=== PATIENT | male | born 1985 | race Caucasian/White ===

== ENCOUNTER → 2017-03-04 | Outpatient (CLI) | payer OTHER ==
--- NOTE | 2017-03-04 20:13 | CT ---
EXAMINATION TYPE: CT brain wo con DATE OF EXAM: 03/04/2017 COMPARISON: NONE HISTORY: DAVISON AND DIZZINESS. CT DLP: 992.9 mGycm. Automated Exposure Control for Dose Reduction was Utilized. TECHNIQUE: CT scan of the head is performed without contrast. FINDINGS: Ventricles have normal size. There is no mass effect nor midline shift. There is no sign of intracranial hemorrhage. The calvarium is intact. CONCLUSION: Negative CT scan of the brain.
== END | disposition home or self-care (01) ==
LOC: RADCTMAIN 19:45
PROVIDERS: ATTEND Internal Medicine
DX: R51 Headache (principal)
CPT/HCPCS: 70450

== ENCOUNTER → 2017-04-29 | Outpatient (CLI) | payer OTHER ==
--- NOTE | 2017-04-29 16:53 | MR ---
EXAMINATION TYPE: MR brain wo con DATE OF EXAM: 04/29/2017 COMPARISON: NONE HISTORY: Headaches CONTRAST: Performed utilizing 0 mL intravenous Gadavist gadolinium contrast. TECHNIQUE: Multiplanar, multiecho imaging on a 3.0 Leigha magnet is performed through the brain. Stud y is performed within 24 hours of arrival to the hospital. The craniovertebral junction is normal. The pituitary is normal. Diffusion-weighted imaging is performed. There is very subtle increased signal within the left front al lobe isointense with the gyri. An additional linear band within the left periventricular white mat ter also isointense with the lindsay matter. There are multiple scattered oval hyperintensities on T2 and inversion recovery weighted sequences. T hese appear oriented perpendicular to the lateral ventricles. Findings appear suggestive although not diagnostic for multiple sclerosis. There is a focal hyperintensity within the left frontal region me asuring 1.2 x 0.7 cm in size. This is just superior to the white matter hyperintensity identified on the diffusion-weighted imaging. Ventricles and sulci are appropriate for the patient age. IMPRESSIONS: 1. Multiple white matter changes oriented perpendicular to the lateral ventricles. Focal hyperintensi ty within the left frontal lobe with white matter changes in a larger patchy area slightly more infer ior. Findings can suggest, although not diagnostic for, multiple sclerosis. 2. Differential diagnosis could include other etiologies such as Lyme disease, microvascular ischemic change, vasculitis. 3. Acute plaque or underlying mass in the left frontal region may be present. Consider follow-up MRI brain with contrast for additional evaluation.
== END | disposition home or self-care (01) ==
LOC: RADMRIMAIN 14:50
PROVIDERS: ATTEND Psychiatry & Neurology Pain Medicine
DX: R90.82 White matter disease, unspecified (principal); R90.89 Other abnormal findings on diagnostic imaging of central nervous system; R51 Headache
CPT/HCPCS: 70551

== ENCOUNTER → 2017-06-24 | Outpatient (CLI) | payer OTHER ==
[2017-06-24 11:56] LABS: Basophils # (A) 0.1 k/uL (0-0.2); Basophils % (A) 1 %; Eosinophils # (A) 0.1 k/uL (0-0.7); Eosinophils % (A) 2 %; HCT 52.2 % (39.0-53.0); HGB 16.3 gm/dL (13.0-17.5); Lymphocytes # (A) 1.5 k/uL (1.0-4.8); Lymphocytes % (A) 30 %; MCH 30.9 pg (25.0-35.0); MCHC 31.3 g/dL (31.0-37.0); MCV 98.7 fL (80.0-100.0); Mean Platelet Volume 7.9; Monocytes # (A) 0.4 k/uL (0-1.0); Monocytes % (A) 7 %; Neutrophils # (A) 2.9 k/uL (1.3-7.7); Neutrophils % (A) 58 %; Platelet Count 240 k/uL (150-450); RBC 5.29 m/uL (4.30-5.90); RDW 14.5 % (11.5-15.5)
[2017-06-24 12:10] LABS: ALT 41 U/L (21-72); AST 20 U/L (17-59); Albumin 4.7 g/dL (3.5-5.0); Alkaline Phosphatase 67 U/L (38-126); Anion Gap 11 mmol/L; Blood Urea Nitrogen 12 mg/dL (9-20); C Reactive Protein <5.0 mg/L (<10.0); Carbon Dioxide 31 mmol/L (22-30); Chloride 102 mmol/L (98-107); Creatine Kinase 111 U/L (55-170); Glucose 99 mg/dL (74-99); Sodium 144 mmol/L (137-145); Total Bilirubin 1.6 mg/dL (0.2-1.3); Total Protein 7.9 g/dL (6.3-8.2)
[2017-06-24 14:26] LABS: Erythrocyte Sedimentation Rate 2 mm/hr (0-15)
[2017-06-24 17:08] LABS: Rheumatoid Factor <4 IU/mL (0-13); Vitamin D 25 Hydroxy 11.9 ng/mL (30.0-100.0)
[2017-06-24 18:03] LABS: Anti-DNA, DS unit <1.0 IU/mL; DNA Double-Stranded NEGATIVE (NEGATIVE)
== END | disposition home or self-care (01) ==
LOC: LABWHC1 11:16
PROVIDERS: ATTEND Psychiatry & Neurology Pain Medicine
DX: R51 Headache (principal); R90.82 White matter disease, unspecified
CPT/HCPCS: 36415; 80053; 82040; 82042; 82306; 82550; 82607; 82784; 83873; 83916; 84157; 84439; 84443; 84481; 85025; 85652; 86038; 86140; 86225; 86334; 86431; 86618; 86780; 87476; 88108; 89050

== ENCOUNTER → 2017-09-04 | Outpatient (CLI) | payer OTHER ==
--- NOTE | 2017-09-04 09:59 | MR ---
EXAMINATION TYPE: MR cervical spine wo/w con DATE OF EXAM: 09/04/2017 8:19 AM COMPARISON: NONE HISTORY: Neck Pain, MS CONTRAST: The patient was injected with 12.5 mL intravenous Gadavist gadolinium contrast. Multiplanar MultiSpin echo imaging of the cervical spine was performed. C2-C3: No evidence for degenerative disc disease. No disc bulge/herniation or protrusion. No Canal stenosis. Foramina are patent bilaterally. C3-C4: No evidence for degenerative disc disease. No disc bulge/herniation or protrusion. No Canal stenosis. Foramina are patent bilaterally. C4-C5: No evidence for degenerative disc disease. No disc bulge/herniation or protrusion. No Canal stenosis. Foramina are patent bilaterally. C5-C6: Mild disc desiccation noted. Left paracentral mild disc herniation is strategically situated a t the entrance of the left neural foramen. There is left foraminal encroachment. No evidence for cord contact or central stenosis. Right neural foramen is patent. C6-C7: Mild disc desiccation is noted. Mild posterocentral disc protrusion effaces the ventral thecal sac without cord contact. No evidence for central stenosis. Visualized neural foramina are patent. C7-T1: No evidence for degenerative disc disease. No disc bulge/herniation or protrusion. No Canal stenosis. Foramina are patent bilaterally. No cervical spine fracture. There is normal alignment. Cervical spinal cord is of normal signal. C raniovertebral junction relationships are within normal limits. No pathologic enhancement. IMPRESSION: 1. Disc desiccation with left paracentral disc herniation C5-6 and left foraminal encroachment. 2. Disc desiccation with mild posterocentral disc protrusion C6-7.
== END | disposition home or self-care (01) ==
LOC: RADMRIMAIN 07:36
PROVIDERS: ATTEND Psychiatry & Neurology Pain Medicine
DX: M50.222 Other cervical disc displacement at C5-C6 level (principal); G35 Multiple sclerosis
CPT/HCPCS: 72156; A9581

== ENCOUNTER → 2018-08-19 | Outpatient (CLI) | payer OTHER ==
[2018-08-19 11:56] LABS: Basophils % (A) 1 %; Eosinophils # (A) 0.2 k/uL (0-0.7); Eosinophils % (A) 4 %; HCT 49.3 % (39.0-53.0); HGB 15.6 gm/dL (13.0-17.5); Lymphocytes # (A) 1.3 k/uL (1.0-4.8); Lymphocytes % (A) 27 %; MCH 31.1 pg (25.0-35.0); MCHC 31.6 g/dL (31.0-37.0); MCV 98.3 fL (80.0-100.0); Mean Platelet Volume 6.8; Monocytes # (A) 0.4 k/uL (0-1.0); Monocytes % (A) 7 %; Neutrophils # (A) 2.9 k/uL (1.3-7.7); Neutrophils % (A) 59 %; Platelet Count 231 k/uL (150-450); RBC 5.02 m/uL (4.30-5.90)
[2018-08-19 16:56] LABS: Albumin 4.5 g/dL (3.80-4.90); Albumin/Globulin Ratio 1.96 (1.60-3.17); Anion Gap 5.9 mmol/L (4.00-12.00); Calcium 8.9 mg/dL (8.7-10.3); Carbon Dioxide 25.1 mmol/L (21.6-31.8); Globulin 2.3 g/dL (1.6-3.3); Potassium 4.4 mmol/L (3.5-5.5); Total Bilirubin 1.3 mg/dL (0.3-1.2); Total Protein 6.8 g/dL (6.2-8.2)
== END | disposition home or self-care (01) ==
LOC: LABWHC1 09:49
PROVIDERS: ATTEND Psychiatry & Neurology Pain Medicine
DX: G35 Multiple sclerosis (principal)
CPT/HCPCS: 36415; 80053; 82306; 83735; 85025

== ENCOUNTER → 2019-07-31 | Outpatient (CLI) | payer OTHER | END | disposition home or self-care (01) | LOC: LABWHC1 10:24 | PROVIDERS: ATTEND Psychiatry & Neurology Pain Medicine | DX: R07.89 Other chest pain (principal) | CPT/HCPCS: 36415; 93005 ==

== ENCOUNTER → 2019-08-06 | Outpatient (CLI) | payer OTHER ==
--- NOTE | 2019-08-06 13:04 | XR ---
EXAMINATION TYPE: XR foot limited bilateral DATE OF EXAM: 08/06/2019 COMPARISON: None HISTORY: Bilateral foot pain stepped on nail steals TECHNIQUE: 2 view bilateral feet FINDINGS: No radiopaque foreign bodies are evident. Bilateral calcaneal plantar heel spurs are presen t. Joint spaces are preserved. No acute osseous abnormality is radiographically apparent. There is so me varus deformity of the distal fourth and fifth phalanx bilateral feet. IMPRESSION: 1. No acute osseous abnormality. 2. No radiopaque foreign bodies.
== END | disposition home or self-care (01) ==
LOC: RADXRMAIN 12:42
PROVIDERS: ATTEND Internal Medicine
DX: M79.671 Pain in right foot (principal); M79.672 Pain in left foot

== ENCOUNTER → 2019-10-13 | Outpatient (CLI) | payer OTHER ==
[2019-10-13 13:22] LABS: Basophils # (A) 0.1 k/uL (0-0.2); Basophils % (A) 1 %; Eosinophils # (A) 0.2 k/uL (0-0.7); Eosinophils % (A) 3 %; HCT 50.1 % (39.0-53.0); HGB 16.4 gm/dL (13.0-17.5); Lymphocytes # (A) 1.6 k/uL (1.0-4.8); Lymphocytes % (A) 20 %; MCH 31.6 pg (25.0-35.0); MCHC 32.8 g/dL (31.0-37.0); MCV 96.4 fL (80.0-100.0); Mean Platelet Volume 7.7; Monocytes # (A) 0.6 k/uL (0-1.0); Monocytes % (A) 7 %; Neutrophils # (A) 5.1 k/uL (1.3-7.7); Neutrophils % (A) 66 %; Platelet Count 219 k/uL (150-450); RDW 13.9 % (11.5-15.5); WBC 7.7 k/uL (3.8-10.6)
[2019-10-13 18:59] LABS: T4, Free (Free Thyroxine) 1.5 ng/dL (0.80-1.80)
[2019-10-13 19:45] LABS: Hepatitis B Core IgM Non-Reactive (Non-Reactive); Hepatitis B Surface AB- Quant 223.6 mIU/mL; Hepatitis B Surface Antibody Reactive (Non-Reactive); Hepatitis B Surface Antigen Non-Reactive (Non-Reactive)
[2019-10-13 20:00] LABS: African American GFR (CKD) 129.6 (60.0-200.0); Albumin 4.6 g/dL (3.80-4.90); Albumin/Globulin Ratio 1.77 (1.60-3.17); Anion Gap 13.7 mmol/L (4.00-12.00); BUN/Creat Ratio 16.67 Ratio (12.00-20.00); Calcium 9.9 mg/dL (8.7-10.3); Carbon Dioxide 25.3 mmol/L (21.6-31.8); Folate, Serum 18.7 ng/mL; Globulin 2.6 g/dL (1.6-3.3); Magnesium 1.9 mg/dL (1.5-2.4); Non-African American GFR(CKD) 111.8 (60.0-200.0); Potassium 4.3 mmol/L (3.5-5.5); Total Bilirubin 1.6 mg/dL (0.3-1.2); Total Protein 7.2 g/dL (6.2-8.2)
[2019-10-13 20:01] LABS: HIV 2 AB Non-Reactive (Non-Reactive); HIV AB P24 Non-Reactive (Non-Reactive); HIV P24 AG Non-Reactive (Non-Reactive)
[2019-10-13 22:30] LABS: Hemoglobin A1C 5.6 % (4.0-6.0)
[2019-10-15 05:28] LABS: Varicella IgM Antibody 0.26 INDEX (<=0.90)
== END | disposition home or self-care (01) ==
LOC: LABWHC1 11:34
PROVIDERS: ATTEND Psychiatry & Neurology Pain Medicine
DX: G35 Multiple sclerosis (principal); R51 Headache
CPT/HCPCS: 36415; 80053; 82306; 82607; 82746; 83036; 83735; 84207; 84425; 84439; 84443; 84481; 84591; 85025; 86704; 86705; 86706; 86787; 87340; 87390

== ENCOUNTER → 2019-12-23 | Outpatient (CLI) | payer OTHER ==
--- NOTE | 2019-12-23 14:47 | US ---
EXAMINATION TYPE: US liver DATE OF EXAM: 12/23/2019 COMPARISON: NONE CLINICAL HISTORY: Elevated liver enzymes R94.5. elevated liver enzymes exam limited due to body hbitu s. EXAM MEASUREMENTS: Liver Length: 23 cm Gallbladder Wall: .3 cm CBD: .5 cm Right Kidney: 12.0 x 5.4 x 5.2 cm Pancreas: Obscured by bowel gas Liver: Increased attenuation hepatomegaly. Gallbladder: Limited not well visualized due body habitus Evidence for sonographic Orourke's sign: No CBD: wnl Right Kidney: wnl IMPRESSION: 1. Fatty liver with underlying hepatomegaly.
== END | disposition home or self-care (01) ==
LOC: RADUSWWP 13:23
PROVIDERS: ATTEND Psychiatry & Neurology Pain Medicine
DX: K76.0 Fatty (change of) liver, not elsewhere classified (principal); R16.0 Hepatomegaly, not elsewhere classified
CPT/HCPCS: 76705

== ENCOUNTER → 2020-04-19 | Outpatient (CLI) | payer OTHER ==
[2020-04-19 11:49] VITALS: BP 137/73; PULSE 64; TEMP 98; BMI 43.4
--- NOTE | 2020-04-19 12:11 | P.HPBAR ---
Bariatric H&P - History & Physicial H&P Date: 04/19/20 History & Physicial: Visit/CC: initial visit Patient initial contact: Initial weight: Initial weight in pounds: Height: 6 ft 1 in Initial BMI: Last weight: Current weight: 149.232 kg Current weight in pounds: 329.00 Current BMI: 43.4 [place] body weight (based on NIH guidelines): 83.461 kg Excess body weight loss: The patient is a 35 year-old M who presents for Bariatric Assessment. He comes in looking the sleeve gastrectomy. He is 4 months of medical supervised weight loss. Has 1 in lifetime. He needs slow and steady weight loss. Food and exercise journal. Needs to get food and exercise journal. Download my fitness p al. He is 6'1. No stomach cancer. No esophageal cancer. No easy bruising or bleeding. No blood clots. Highest weight is at present 329 pounds. Has arthritis. He reports headaches daily. [facility] calculator. All questions addressed. Mom is at bedside. Past Medical History Past Medical History: No Reported History History of Any Multi-Drug Resistant Organisms: None Reported Past Surgical History: No Surgical Hx Reported Past Anesthesia/Blood Transfusion Reactions: No Reported Reaction Past Psychological History: No Psychological Hx Reported Smoking Status: Never smoker Past Alcohol Use History: Occasional Past Drug Use History: None Reported Surgical - Exam Vital Signs Temp Pulse BP 98 F 64 137/73 04/19/20 11:37 04/19/20 11:37 04/19/20 11:37 Bariatric Checklist Checklist: Plan: Checklist: EGD: 1. Hiatal hernia: 2. H. Pylori: HgbA1c: Vitamin D: Smoking: Never smoker Primary care physician referral: Dr. Cano Psychiatry clearance: Cardiology clearance: Sleep study: Diet journal: VTE risk score: VTE risk level: Rehab needs at discharge:
[2020-04-19 13:12] LABS: HGB 16.5 gm/dL (13.0-17.5); MCH 32.4 pg (25.0-35.0); MCHC 32.3 g/dL (31.0-37.0); MCV 100.1 fL (80.0-100.0); Mean Platelet Volume 7.8; Platelet Count 244 k/uL (150-450); RBC 5.09 m/uL (4.30-5.90); RDW 13.7 % (11.5-15.5); WBC 5.8 k/uL (3.8-10.6)
[2020-04-19 13:23] LABS: Partial Thromboplastin Time 25.2 sec (22.0-30.0); Prothrombin Time 10.6 sec (9.0-12.0)
[2020-04-19 20:14] LABS: % Iron Saturation 29.64 (15.00-50.00); African American GFR (CKD) 128.7 (60.0-200.0); Albumin 4.5 g/dL (3.80-4.90); Albumin/Globulin Ratio 1.88 (1.60-3.17); Anion Gap 6.4 mmol/L (4.00-12.00); BUN/Creat Ratio 17.78 Ratio (12.00-20.00); Calcium 9.2 mg/dL (8.7-10.3); Carbon Dioxide 25.6 mmol/L (21.6-31.8); Chol/HDL Ratio 3.96; Globulin 2.4 g/dL (1.6-3.3); LDL Cholesterol,Calculated 113.6 mg/dL (0.0-131.0); Magnesium 1.9 mg/dL (1.5-2.4); Phosphorus 3.6 mg/dL (2.4-5.1); Potassium 4.6 mmol/L (3.5-5.5); Total Bilirubin 1.1 mg/dL (0.3-1.2); Total Protein 6.9 g/dL (6.2-8.2); VLDL Calculation 19.4 mg/dL (5.00-40.00)
[2020-04-19 20:34] LABS: Ferritin 777.2 ng/mL (22.0-322.0); Folate, Serum 13.8 ng/mL
[2020-04-19 21:05] LABS: Hemoglobin A1C 5.6 % (4.0-6.0)
[2020-04-20 11:30] LABS: Zinc, Serum 81 ug/dL (60-130)
[2020-04-21 07:27] LABS: Vit B1(Thiamine) 83 ug/L (38-122)
[2020-04-21 07:34] LABS: Vitamin A 45 ug/dL (38-106)
[2020-04-26 19:17] LABS: Selenium 124 mcg/L (63-160)
== END | disposition home or self-care (01) ==
LOC: BARWHC3 10:57
PROVIDERS: ATTEND Surgery Plastic and Reconstructive Surgery
DX: E66.01 Morbid (severe) obesity due to excess calories (principal); D50.8 Other iron deficiency anemias; E44.0 Moderate protein-calorie malnutrition; K74.1 Hepatic sclerosis; N19 Unspecified kidney failure; K50.90 Crohn's disease, unspecified, without complications; Z68.41 Body mass index [BMI] 40.0-44.9, adult
CPT/HCPCS: 84255; 84134; 84425; 80061; 80053; 82607; 82728; 82525; 82746; 83540; 83550; 83735; 84100; 84443; 84590; 84630; 85027; 85610; 85730; 82306; 83970; 83036; 93005; G0463; 99211

== ENCOUNTER → 2020-05-10 | Day surgery (SDC) | payer OTHER ==
[2020-05-09 08:29] VITALS: BMI 43.5
[~2020-05-10] MED LIST: LACTATED RINGERS 1,000 ML IV SCH; LIDOCAINE 1% (10MG/ML) FOR IV START INTRADERMA ONE; PROPOFOL 10 MG/ML 20 ML VIAL IV ONE
--- NOTE | 2020-05-10 08:40 | P.GSHP ---
History of Present Illness H&P Date: 05/10/20 CHIEF COMPLAINT: GERD HISTORY OF PRESENT ILLNESS: The patient is a 35-year-old male who presents reports gastroesophageal reflux disease. Upper endoscopy was offered for further evaluation and management. PAST MEDICAL HISTORY: Please see list. PAST SURGICAL HISTORY: Please see list. MEDICATIONS: Please see list. ALLERGIES: Please see list. SOCIAL HISTORY: No illicit drug use FAMILY HISTORY: No reports of Crohn disease or ulcerative colitis. REVIEW OF ORGAN SYSTEMS: CONSTITUTIONAL: No reports of fevers or chills. GI: Denies any blood in stools or constipation. PHYSICAL EXAM: VITAL SIGNS: Stable GENERAL: Well-developed and pleasant in no acute distress. HEENT: No scleral icterus. Extraocular movements grossly intact. Moist buccal mucosa. NECK: Supple without lymphadenopathy. CHEST: Unlabored respirations. Equal bilateral excursions. CARDIOVASCULAR: Regular rate and rhythm. Distal 2+ pulses. ABDOMEN: Soft, nondistended. MUSCULOSKELETAL: No clubbing, cyanosis, or edema. ASSESSMENT: 1. Gastroesophageal reflux disease PLAN: 1. Recommend proceeding with an upper endoscopy Past Medical History Past Medical History: No Reported History Additional Past Medical History / Comment(s): migraines, Mult sclerosis, History of Any Multi-Drug Resistant Organisms: None Reported Past Surgical History: No Surgical Hx Reported Past Anesthesia/Blood Transfusion Reactions: No Reported Reaction Additional Past Anesthesia/Blood Transfusion Reaction / Comment(s): never had anesthesia Smoking Status: Never smoker - Past Family History Mother Family Medical History: Cancer Additional Family Medical History / Comment(s): thyroid cancer Medications and Allergies Home Medications Medication Instructions Recorded Confirmed Type Escitalopram Oxalate [Lexapro] 10 mg PO HS 03/04/17 04/19/20 History Phentermine HCl [Adipex-P] 37.5 mg PO QAM 03/04/17 04/19/20 History Naproxen 250 mg PO DIRECTED 04/19/20 04/19/20 History Allergies Allergy/AdvReac Type Severity Reaction Status Date / Time No Known Allergies Allergy Verified 05/10/20 08:35
[2020-05-10 08:45] VITALS: TEMP 98.2
--- NOTE | 2020-05-10 09:26 | P.PCN ---
Date of Procedure: 05/10/20 Description of Procedure: PREOPERATIVE DIAGNOSIS: Gastroesophageal reflux disease. Morbid obesity. POSTOPERATIVE DIAGNOSIS: Morbid obesity. Gastritis. Duodenitis OPERATION: Esophagogastroduodenoscopy with biopsies along antrum and duodenum SURGEON: Rochelle Hernandez MD ANESTHESIA: MAC. INDICATIONS: The patient is a 35-year-old male who presents with a history of reflux disease. Benefits and risks of the procedure were described. Informed consent was obtained. DESCRIPTION: The patient was brought into the endoscopy suite and laid in the left lateral decubitus position. An Olympus gastroscope was passed along the posterior oropharynx down to the distal esophagus where the squamocolumnar junction was encountered at 44 cm from the incisors. The stomach was entered and no bile reflux was found. Additional findings are listed below. Biopsies with cold forceps were obtained of the antrum. The first through third portion of the duodenum was examined. Retroflexion of the scope confirmed Hill grade 3 lower esophageal valve. The squamocolumnar junction demonstrated LA grade A erosive esophagitis. The stomach was desufflated. The patient tolerated the procedure well. FINDINGS: Squamocolumnar junction 44 cm from the incisors. Diaphragmatic hiatus at 44 cm. Hill grade 1 lower esophageal valve. LA grade A erosive esophagitis. Mild duodenitis. Chronic gastritis RECOMMENDATIONS: Upper endoscopy as needed. Plan - Discharge Summary New Discharge Prescriptions: Continue RX: Escitalopram Oxalate [Lexapro] 10 mg PO HS RX: Phentermine HCl [Adipex-P] 37.5 mg PO QAM RX: Naproxen 500 mg PO DIRECTED Discharge Medication List RX: Escitalopram Oxalate [Lexapro] 10 mg PO HS 03/04/17 [History] RX: Phentermine HCl [Adipex-P] 37.5 mg PO QAM 03/04/17 [History] RX: Naproxen 500 mg PO DIRECTED 04/19/20 [History] [facility] up [facility]ment(s[facility] [place] [place] [facility] Week Patient Instructions/Handouts: Duodenitis (DC) Discharge Disposition: HOME SELF-CARE
[2020-05-10 09:34] VITALS: RESP 16
[2020-05-10 09:49] VITALS: BP 123/74; PULSE 52
== END | disposition home or self-care (01) ==
LOC: ORWHC2ENDO 07:58
PROVIDERS: ATTEND Surgery Plastic and Reconstructive Surgery
DX: K29.50 Unspecified chronic gastritis without bleeding (principal); K22.10 Ulcer of esophagus without bleeding; K21.9 Gastro-esophageal reflux disease without esophagitis; K29.80 Duodenitis without bleeding; K29.70 Gastritis, unspecified, without bleeding; E66.01 Morbid (severe) obesity due to excess calories; Z68.41 Body mass index [BMI] 40.0-44.9, adult; G35 Multiple sclerosis; G43.909 Migraine, unspecified, not intractable, without status migrainosus; Z80.8 Family history of malignant neoplasm of other organs or systems; Z79.1 Long term (current) use of non-steroidal anti-inflammatories (NSAID); Z79.899 Other long term (current) drug therapy
CPT/HCPCS: 88305; 88342; 43239; J2704

== ENCOUNTER → 2020-05-17 | Outpatient (CLI) | payer OTHER ==
[2020-05-17 15:06] VITALS: BP 104/54; PULSE 59; RESP 18; TEMP 98.4
--- NOTE | 2020-05-17 15:46 | P.PN ---
Subjective Progress Note Date: 05/17/20 DATE OF SERVICE: 05/17/2020 CHIEF COMPLAINT: Morbid obesity HISTORY OF PRESENT ILLNESS: Jude Batres is a 35-year-old male who comes with morbid obesity. He completed an upper endoscopy. He takes multiple medications for multiple sclerosis and is on treatment that caused hepatitis. He sees Dr. Fine. He had abdominal pain. At height of 6 feet 1 inches, ideal body weight is 188 pounds. His highest weight is 329 pounds, BMI 43.5. He comes in 325 pounds from 328 pounds, 1 month ago. He has lost 3 pounds in 1 month. His body mass index is 43.0. He is 137 pounds overweight. PAST MEDICAL HISTORY: 1. Morbid obesity due to excess calories 2. Body mass index of 43.4, initial 3. Depressive disorder 4. Osteoarthritis of the lower back PAST SURGICAL HISTORY: 1. No previous abdominal surgeries HOME MEDICATIONS: Home Medications Medication Instructions Recorded Confirmed Escitalopram Oxalate [Lexapro] 10 mg PO HS 03/04/17 05/29/20 Phentermine HCl [Adipex-P] 37.5 mg PO QAM 03/04/17 05/29/20 Naproxen 500 mg PO DIRECTED 04/19/20 05/29/20 ALLERGIES: Allergies Allergy/AdvReac Type Severity Reaction Status Date / Time No Known Allergies Allergy Verified 05/29/20 09:45 SOCIAL HISTORY: No past tobacco use. FAMILY HISTORY: No family history of ulcerative colitis disease or Crohn's disease. Family history of morbid obesity. No lupus in the family. No reports of stomach or esophageal cancer. REVIEW OF ORGAN SYSTEMS: CONSTITUTIONAL: HEENT: Denies any active troubles with vision or hearing. ENDOCRINE: Denies diabetes. No hypothyroidism. CARDIOVASCULAR: No past reports of palpitations or heart attacks or chest pain. RESPIRATORY: Has daytime somnolence. No recent pneumonia. GASTROINTESTINAL: Denies any bright red blood per rectum. No diarrhea. No constipation. MUSCULOSKELETAL: Has lower back pain and joint pain. Has osteoarthritis of the knees. NEURO: Has headaches. No seizure disorders. PSYCH: Has depression. No suicidal ideation. RHEUMATOLOGIC: No lupus. No rheumatoid arthritis. HEMATOLOGIC: Denies any abnormal bleeding or bruising. No personal history of DVTs. SKIN: No rash. No skin cancer. PHYSICAL EXAM: VITAL SIGNS: Height 6 foot 1 inches, weight 325 pounds. BMI 43.0 Vital Signs Temp 98.4 F 05/17/20 15:03 Pulse 59 L 05/17/20 15:03 Resp 18 05/17/20 15:03 BP 104/54 05/17/20 15:03 Pulse Ox GENERAL: Well-developed in no acute distress. HEENT: No scleral icterus. Extraocular movements grossly intact. Hears conversational speech. No nasal drainage. NECK: Supple without lymphadenopathy. CHEST: Nonlabored respirations with equal bilateral excursions. CARDIOVASCULAR: Regular rate and regular rhythm. Distal 2+ pulses. ABDOMEN: Obese, soft, nontender, nondistended. MUSCULOSKELETAL: No clubbing, cyanosis. NEURO: No focal or lateralizing signs. Cranial nerves 2 through 12 grossly within normal limits. PSYCH: Appropriate affect. Alert and oriented to person, place and time. SKIN: Good skin turgor. Well perfused. EGD FINDINGS: Squamocolumnar junction 44 cm from the incisors. Diaphragmatic hiatus at 44 cm. Hill grade 1 lower esophageal valve. LA grade A erosive esophagitis. Mild duodenitis. Chronic gastritis LABS: AST and ALT is elevated EKG: Normal sinus rhythm Final Pathologic Diagnosis A. GASTRIC ANTRUM, BIOPSY: Moderate chronic gastritis with minimal activity. Helicobacter pylori immunoperoxidase stain is negative for H. pylori organisms ( controls appropriate). B. DUODENUM, BIOPSY: Acute duodenitis with foveolar metaplasia and submucosal Ace gland hyperplasia consistent with peptic duodenitis. ASSESSMENT: 1. Morbid obesity due to excess calories 2. Body mass index of 43.4, initial 3. Depressive disorder 4. Osteoarthritis of the lower back 5. Gastritis 6. Duodenitis PLAN: 1. Omeprazole 40 mg daily for gastritis and duodenitis. Objective - Vital Signs Vital signs: Vital Signs Temp 98.4 F 05/17/20 15:03 Pulse 59 L 05/17/20 15:03 Resp 18 05/17/20 15:03 BP 104/54 05/17/20 15:03 Pulse Ox Intake & Output 05/16/20 05/17/20 05/17/20 18:59 06:59 18:59 Weight 147.871 kg
== END | disposition home or self-care (01) ==
LOC: BARWHC3 14:17
PROVIDERS: ATTEND Surgery Plastic and Reconstructive Surgery
DX: E66.01 Morbid (severe) obesity due to excess calories (principal); F32.9 Major depressive disorder, single episode, unspecified; M47.9 Spondylosis, unspecified; K29.70 Gastritis, unspecified, without bleeding; K29.80 Duodenitis without bleeding; Z68.41 Body mass index [BMI] 40.0-44.9, adult; Z79.899 Other long term (current) drug therapy; Z79.1 Long term (current) use of non-steroidal anti-inflammatories (NSAID)
CPT/HCPCS: 99211

== ENCOUNTER → 2020-05-29 | Outpatient (CLI) | payer OTHER ==
[2020-05-29 09:32] VITALS: BMI 43.1
== END | disposition home or self-care (01) ==
LOC: BARWHC3 08:49
PROVIDERS: ATTEND Surgery Plastic and Reconstructive Surgery
DX: E66.01 Morbid (severe) obesity due to excess calories (principal); Z71.3 Dietary counseling and surveillance; Z68.41 Body mass index [BMI] 40.0-44.9, adult
CPT/HCPCS: 97804

== ENCOUNTER → 2020-09-27 | Outpatient (CLI) | payer OTHER ==
--- NOTE | 2020-09-27 15:41 | P.PN ---
Subjective Progress Note Date: 09/27/20 DATE OF SERVICE: 09/27/2020 CHIEF COMPLAINT: Morbid obesity HISTORY OF PRESENT ILLNESS: Jude Batres is a 35-year-old male who comes with morbid obesity. As a result of his morbid obesity, he has developed osteoarthritis of the lower back, multiple sclerosis, depressive disorder. He comes in looking for a sleeve gastrectomy. He's completed dietary surveillance and counseling, medical risk assessment as well. At height of 6 feet 1 inches, ideal body weight is 188 pounds. His highest weight is 329 pounds, BMI 43.5. He comes in 313 pounds from 325 pounds, 6 month ago. He has lost 12 pounds in 6 months. His body mass index is 41.4. He is 125 pounds overweight. PAST MEDICAL HISTORY: 1. Morbid obesity due to excess calories 2. Body mass index of 43.4, initial 3. Depressive disorder 4. Osteoarthritis of the lower back 5. Multiple sclerosis PAST SURGICAL HISTORY: 1. No previous abdominal surgeries HOME MEDICATIONS: Home Medications Medication Instructions Recorded Confirmed Escitalopram Oxalate [Lexapro] 10 mg PO HS 03/04/17 05/29/20 Phentermine HCl [Adipex-P] 37.5 mg PO QAM 03/04/17 05/29/20 Naproxen 500 mg PO DIRECTED 04/19/20 05/29/20 ALLERGIES: Allergies Allergy/AdvReac Type Severity Reaction Status Date / Time No Known Allergies Allergy Verified 05/29/20 09:45 SOCIAL HISTORY: No past tobacco use. FAMILY HISTORY: No family history of ulcerative colitis disease or Crohn's disease. Family history of morbid obesity. No lupus in the family. No reports of stomach or esophageal cancer. REVIEW OF ORGAN SYSTEMS: CONSTITUTIONAL: At height of 6 feet 1 inches, ideal body weight is 188 pounds. His highest weight is 329 pounds, BMI 43.5. He is 137 pounds overweight. HEENT: Denies any active troubles with vision or hearing. ENDOCRINE: Denies diabetes. No hypothyroidism. CARDIOVASCULAR: No past reports of palpitations or heart attacks or chest pain. RESPIRATORY: Has daytime somnolence. No recent pneumonia. GASTROINTESTINAL: Denies any bright red blood per rectum. No diarrhea. No constipation. MUSCULOSKELETAL: Has lower back pain and joint pain. Has osteoarthritis of the knees. Reports multiple sclerosis. NEURO: Has headaches. No seizure disorders. PSYCH: Has depression. No suicidal ideation. RHEUMATOLOGIC: No lupus. No rheumatoid arthritis. HEMATOLOGIC: Denies any abnormal bleeding or bruising. No personal history of DVTs. SKIN: No rash. No skin cancer. PHYSICAL EXAM: VITAL SIGNS: Height 6 foot 1 inches, weight 313 pounds. BMI 41.4 Vital Signs Temp 98.1 F 09/27/20 14:47 Pulse 64 09/27/20 14:47 Resp 16 09/27/20 14:47 BP 116/75 09/27/20 14:47 Pulse Ox GENERAL: Well-developed in no acute distress. HEENT: No scleral icterus. Extraocular movements grossly intact. Hears conversational speech. No nasal drainage. NECK: Supple without lymphadenopathy. CHEST: Nonlabored respirations with equal bilateral excursions. CARDIOVASCULAR: Regular rate and regular rhythm. Distal 2+ pulses. ABDOMEN: Obese, soft, nontender, nondistended. MUSCULOSKELETAL: No clubbing, cyanosis. NEURO: No focal or lateralizing signs. Cranial nerves 2 through 12 grossly within normal limits. PSYCH: Appropriate affect. Alert and oriented to person, place and time. SKIN: Good skin turgor. Well perfused. ASSESSMENT: 1. Morbid obesity due to excess calories 2. Body mass index of 43.4, initial to 41.4 3. Depressive disorder 4. Osteoarthritis of the lower back 5. Gastritis 6. Duodenitis 7. Multiple sclerosis PLAN: 1. Bariatric options between a sleeve, band and a Collette-en-Y gastric bypass were reviewed in detail. The patient elected for a sleeve gastrectomy. Robotic assisted approach described. 2. The [place] [facility] Data was also reviewed with benefits and risks as described. 3. An 8 page second-generation bariatric consent form was reviewed in detail including potential of bleeding, infection, leaks, adequate weight loss, nutritional deficiencies which the patient demonstrated understanding of the risks. 4. A 2 week high-protein low caloric 800 kcal diet described to address hepatomegaly. 5. Preoperative labs including complete metabolic panel and CBC with type and screen recommended. 6. DVT prophylaxis per [place] [facility]. 7. Antibiotic prophylaxis. 8. Inpatient hospitalization anticipated for more than 2 nights. 9. All questions and concerns were addressed with the patient. 10. Overall, patient has expressed understanding of bariatric care including postoperative diet and commitment of lifestyle. Patient should benefit from surgical intervention for correction of her morbid obesity. 11. NSQIP risk and benefits reviewed. 12. Anticipated discharge 1.5 days. 13. He is awaiting COVID vaccination with anticipated surgery delayed for November 23 activity. 14. Surgery immediately during vaccination puts him at increased risk for complications. Objective - Vital Signs Vital signs: Vital Signs Temp 98.1 F 09/27/20 14:47 Pulse 64 09/27/20 14:47 Resp 16 09/27/20 14:47 BP 116/75 09/27/20 14:47 Pulse Ox Intake & Output 09/26/20 09/27/20 09/27/20 18:59 06:59 18:59 Weight 142.428 kg
== END ==
CPT/HCPCS: 99211

== ENCOUNTER → 2020-10-24 | Outpatient (CLI) | payer OTHER ==
[2020-10-24 13:47] LABS: Basophils # (A) 0.1 k/uL (0-0.2); Basophils % (A) 1 %; Eosinophils # (A) 0.2 k/uL (0-0.7); Eosinophils % (A) 3 %; HCT 48.8 % (39.0-53.0); HGB 16.5 gm/dL (13.0-17.5); Lymphocytes # (A) 1.5 k/uL (1.0-4.8); Lymphocytes % (A) 19 %; MCH 32.3 pg (25.0-35.0); MCHC 33.7 g/dL (31.0-37.0); MCV 95.8 fL (80.0-100.0); Mean Platelet Volume 7.5; Monocytes # (A) 0.5 k/uL (0-1.0); Monocytes % (A) 7 %; Neutrophils # (A) 5.3 k/uL (1.3-7.7); Neutrophils % (A) 68 %; Platelet Count 234 k/uL (150-450); RDW 13.6 % (11.5-15.5); WBC 7.7 k/uL (3.8-10.6)
[2020-10-24 13:59] LABS: ALT 37 U/L (4-49); AST 33 U/L (17-59); African American GFR (CKD) >90 (>60 ml/min/1.73 sqM); Albumin 4.3 g/dL (3.5-5.0); Alkaline Phosphatase 75 U/L (38-126); Anion Gap 7 mmol/L; Blood Urea Nitrogen 11 mg/dL (9-20); Carbon Dioxide 26 mmol/L (22-30); Chloride 106 mmol/L (98-107); Glucose 101 mg/dL (74-99); Non-African American GFR(CKD) >90 (>60 ml/min/1.73 sqM); Potassium 4.3 mmol/L (3.5-5.1); Sodium 139 mmol/L (137-145); Total Bilirubin 0.9 mg/dL (0.2-1.3); Total Protein 7.4 g/dL (6.3-8.2)
== END | disposition home or self-care (01) ==
LOC: LABPAT 13:04
PROVIDERS: ATTEND Surgery Plastic and Reconstructive Surgery
DX: Z01.812 Encounter for preprocedural laboratory examination (principal)
CPT/HCPCS: 36415; 80053; 85025; 86850; 86900; 86901

== ENCOUNTER 2020-10-30 08:50 | Inpatient (IN) | payer OTHER ==
--- NOTE | 2020-10-30 07:51 | P.GSHP ---
History of Present Illness H&P Date: 10/30/20 CHIEF COMPLAINT: Morbid obesity HISTORY OF PRESENT ILLNESS: Jude Batres is a 35-year-old male who comes with morbid obesity. He has completed bariatric risk assessment including dietary surveillance and counseling, medical risk assessment and psychological assessment. As results of his morbid obesity, history of osteoarthritis of the lower extremities including sleep apnea. He presents today for sleeve gastrectomy. At height of 6 feet 1 inches, ideal body weight is 188 pounds. His highest weight is 329 pounds, BMI 43.5. He is 137 pounds overweight. PAST MEDICAL HISTORY: 1. Morbid obesity due to excess calories 2. Body mass index of 43.4, initial 3. Depressive disorder 4. Osteoarthritis of the lower back PAST SURGICAL HISTORY: 1. No previous abdominal surgeries HOME MEDICATIONS: Home Medications Medication Instructions Recorded Confirmed Escitalopram Oxalate [Lexapro] 10 mg PO HS 03/04/17 05/29/20 Phentermine HCl [Adipex-P] 37.5 mg PO QAM 03/04/17 05/29/20 Naproxen 500 mg PO DIRECTED 04/19/20 05/29/20 ALLERGIES: Allergies Allergy/AdvReac Type Severity Reaction Status Date / Time No Known Allergies Allergy Verified 05/29/20 09:45 SOCIAL HISTORY: No past tobacco use. FAMILY HISTORY: No family history of ulcerative colitis disease or Crohn's disease. Family history of morbid obesity. No lupus in the family. No reports of stomach or esophageal cancer. REVIEW OF ORGAN SYSTEMS: CONSTITUTIONAL: HEENT: Denies any active troubles with vision or hearing. ENDOCRINE: Denies diabetes. No hypothyroidism. CARDIOVASCULAR: No past reports of palpitations or heart attacks or chest pain. RESPIRATORY: Has daytime somnolence. No recent pneumonia. GASTROINTESTINAL: Denies any bright red blood per rectum. No diarrhea. No constipation. MUSCULOSKELETAL: Has lower back pain and joint pain. Has osteoarthritis of the knees. NEURO: Has headaches. No seizure disorders. PSYCH: Has depression. No suicidal ideation. RHEUMATOLOGIC: No lupus. No rheumatoid arthritis. HEMATOLOGIC: Denies any abnormal bleeding or bruising. No personal history of DVTs. SKIN: No rash. No skin cancer. PHYSICAL EXAM: VITAL SIGNS: Height 6 foot 1 inches, weight 325 pounds. BMI 43.0 GENERAL: Well-developed in no acute distress. HEENT: No scleral icterus. Extraocular movements grossly intact. Hears conversational speech. No nasal drainage. NECK: Supple without lymphadenopathy. CHEST: Nonlabored respirations with equal bilateral excursions. CARDIOVASCULAR: Regular rate and regular rhythm. Distal 2+ pulses. ABDOMEN: Obese, soft, nontender, nondistended. MUSCULOSKELETAL: No clubbing, cyanosis. NEURO: No focal or lateralizing signs. Cranial nerves 2 through 12 grossly within normal limits. PSYCH: Appropriate affect. Alert and oriented to person, place and time. SKIN: Good skin turgor. Well perfused. ASSESSMENT: 1. Morbid obesity due to excess calories 2. Body mass index of 43.4, initial 3. Depressive disorder 4. Osteoarthritis of the lower back 5. Gastritis 6. Duodenitis PLAN: 1. Bariatric options between a sleeve, band and a Collette-en-Y gastric bypass were reviewed in detail. The patient elected for a sleeve gastrectomy. Robotic assisted approach described. 2. The [place] [facility] Data was also reviewed with benefits and risks as described. 3. An 8 page second-generation bariatric consent form was reviewed in detail including potential of bleeding, infection, leaks, adequate weight loss, nutritional deficiencies which the patient demonstrated understanding of the risks. 4. A 2 week high-protein low caloric 800 kcal diet described to address hepatomegaly. 5. Preoperative labs including complete metabolic panel and CBC with type and screen recommended. 6. DVT prophylaxis per [place] [facility]ariat[facility] collaborative. 7. Antibiotic prophylaxis. 8. Inpatient hospitalization anticipated for more than 2 nights. 9. All questions and concerns were addressed with the patient. Past Medical History Past Medical History: No Reported History Additional Past Medical History / Comment(s): migraines, Multiple sclerosis, History of Any Multi-Drug Resistant Organisms: None Reported Past Surgical History: No Surgical Hx Reported Additional Past Surgical History / Comment(s): egd Past Anesthesia/Blood Transfusion Reactions: No Reported Reaction Additional Past Anesthesia/Blood Transfusion Reaction / Comment(s): never had anesthesia Smoking Status: Never smoker - Past Family History Mother Family Medical History: Cancer Additional Family Medical History / Comment(s): thyroid cancer Medications and Allergies Home Medications Medication Instructions Recorded Confirmed Type Escitalopram Oxalate [Lexapro] 5 mg PO DAILY PRN 03/04/17 10/25/20 History Naproxen 500 mg PO BID PRN 04/19/20 10/25/20 History Topiramate [Topamax] 25 mg PO BID 10/27/20 10/27/20 History Allergies Allergy/AdvReac Type Severity Reaction Status Date / Time No Known Allergies Allergy Verified 10/27/20 11:33
[~2020-10-30 08:50] MED LIST changes: +ACETAMINOPHEN TAB 500 MG TAB PO PRN; +CHLORHEXIDINE GLUCONATE 15 ML CUP MUCOUS MEM PRN; +DEXAMETHASONE SOD PHOSPHATE 4 MG/ML 1 ML VIAL IV ONE; +ENOXAPARIN 40 MG/0.4 ML SYRINGE SQ PRN; +GABAPENTIN 300 MG CAP PO PRN; +HYDROmorphone 0.5 MG/0.5 ML SYRINGE IVP PRN; -LACTATED RINGERS 1,000 ML IV SCH; -LIDOCAINE 1% (10MG/ML) FOR IV START INTRADERMA ONE; +MIDAZOLAM 2 MG/2 ML VIAL IV PRN; +ONDANSETRON 4 MG/2 ML VIAL IVP ONE; +PANTOPRAZOLE 40 MG/10 ML VIAL IVP PRN; -PROPOFOL 10 MG/ML 20 ML VIAL IV ONE; +SCOPOLAMINE 1.5MG/72HR PATCH TRANSDERM PRN; +TAMSULOSIN 0.4 MG CAP.ER.24H PO PRN; +ceFAZolin 3 GM in SODIUM CHLORIDE 0.9% 100 ML IVPB PRN
[2020-10-30] MEDS: LACTATED RINGERS 1,000 ML IV SCH ×3 (09:07→11:00)
[2020-10-30] MEDS ORDERED: LIDOCAINE 1% (10MG/ML) FOR IV START INTRADERMA ONE (09:46)
[2020-10-30] MEDS ORDERED: SUCCINYLCHOLINE CHLORIDE 100 MG/5 ML SYR IV ONE (11:01)
[2020-10-30] MEDS ORDERED: NEOSTIGMINE 1 MG/ML 10 ML VIAL ONE (11:01)
[2020-10-30] MEDS ORDERED: HYDROmorphone (PF) 1 MG/ML ONE (11:01)
[2020-10-30] MEDS ORDERED: MIDAZOLAM 2 MG/2 ML VIAL ONE (11:01)
[2020-10-30] MEDS ORDERED: PROPOFOL 10 MG/ML 20 ML VIAL IV ONE (11:01)
[2020-10-30] MEDS ORDERED: ROCURONIUM 10 MG/ML (5 ML VIAL) IV ONE (11:01)
[2020-10-30] MEDS ORDERED: fentaNYL (PF) 50 MCG/ML 2 ML AMP ONE (11:01)
[2020-10-30] MEDS ORDERED: ePHEDrine SULFATE/0.9% NACL/PF 50 MG/5 ML SYRINGE IV ONE (11:01)
[2020-10-30] MEDS ORDERED: GLYCOPYRROLATE 0.2 MG/ML 2 ML VIAL ONE (11:01)
[2020-10-30] MEDS ORDERED: LIDOCAINE 1% INJ 10MG/ML (20 ML MDV) ONE (11:01)
[2020-10-30] MEDS ORDERED: LIDOCAINE 1%-EPI 1:100,000 20 ML VIAL SQ ONE (11:22)
[2020-10-30] MEDS ORDERED: LACTATED RINGERS 1,000 ML IV ONE ×2 (12:13→14:17)
[2020-10-30] MEDS ORDERED: HYDROmorphone 1 MG/ML 1 ML SYRINGE IVP PRN (13:14)
[2020-10-30] MEDS ORDERED: diphenhydrAMINE 50 MG/ML 1 ML VIAL IVP PRN (13:14)
[2020-10-30] MEDS ORDERED: NALOXONE 0.4 MG/ML 1 ML VIAL IV PRN (13:14)
[2020-10-30] MEDS ORDERED: SODIUM CHLORIDE 0.9% 2,000 ML IV ONE (13:18)
--- NOTE | 2020-10-30 13:33 | P.OP ---
Date of Procedure: 10/30/20 Description of Procedure: SURGEON: FEDERICA DIALLO MD PREOPERATIVE DIAGNOSES: 1. Morbid obesity due to excess calories 2. Body mass index of 43.4, initial 3. Depressive disorder 4. Osteoarthritis of the lower back 5. Gastritis 6. Duodenitis 7. Multiple sclerosis 8. Depressive disorder 9. Generalized anxiety disorder POSTOPERATIVE DIAGNOSES: 1. Morbid obesity due to excess calories 2. Body mass index of 43.4, initial 3. Depressive disorder 4. Osteoarthritis of the lower back 5. Gastritis 6. Duodenitis 7. Multiple sclerosis 8. Depressive disorder 9. Generalized anxiety disorder 10. Fatty liver disease OPERATION: 1. Robotic assisted daVinci Xi laparoscopic sleeve gastrectomy with 40-Ivorian bougie, multiport. 2. Intraoperative esophagogastroduodenoscopy. ANESTHESIA: Gen. local anesthetic ESTIMATED BLOOD LOSS: 5 mL SPECIMENS REMOVED: Sleeve gastrectomy COMPLICATIONS: None. FINDINGS: 1. Negative intraoperative esophagogastrojejunoscopy leak test. 2. No large hiatus hernia. 3. Total of 7 staplers used including 7 - 60 mm green obot anne used to create the gastric sleeve. 4. Sleeve gastrectomy 30 x 4.5 cm INDICATIONS: Jude Batres is a 35-year-old male who comes with morbid obesity. He has completed bariatric risk assessment including dietary surveillance and counseling, medical risk assessment and psychological assessment. At height of 6 feet 1 inches, ideal body weight is 188 pounds. His highest weight is 329 pounds, BMI 43.5. Today, he comes in weighing 299 pounds. All surgical options for morbid obesity had been described using the [place] [facility]ariat[facility] surgery collaborative comorbidity resolution including complication r isk score. A second-generation bariatric consent form was described in detail including the possibility of protein malnutrition, leaks, gastric stricture, venous thrombosis, gastroesophageal reflux disease, need for further surgery for which he demonstrated understanding. Benefits and risks of the procedure were described at length. Informed consent was obtained. DESCRIPTION: The patient was brought into the operating room theater. Preoperatively he had received Lovenox subcutaneously for DVT prophylaxis. Additionally he had Peridex oral solution as an oral decontaminant. After general induction, the abdomen was prepped and draped in standard sterile fashion. An Ioban draping was placed along the abdomen. No schneider catheter was placed. A robotic da Juliocesar Xi system was prepped and primed. At 15 cm from the xiphoid, proposed port sites were marked with indelible marker along the anterior axillary line bilaterally, mid axillary line bilaterally with each ports were marked 10 to 15 cm from each other. The billing and accounting staff assistant port was marked along the left lateral abdominal wall. The robotic stapler port was marked for the right midclavicular line. A 5 mm 0 degrees laparoscopic trocar entry was performed along the left upper quadrant. The abdomen was insufflated to 15 mmHg pressure he tolerated well. Diagnostic laparoscopy demonstrated no injury to bowel, viscera, or mesentery. The liver surface was remarkable for fatty liver disease. No injury had occurred to the small bowel or viscera. Along the hiatus no recurrent hiatal hernia was found. A 8 mm port was placed along the right upper abdominal wall after exchanging the 5 mm port. A separate 8 mm port was placed along the left lateral abdominal wall. Please note that the ports were placed at least 20 cm away from the target anatomy. Care was taken to check each robotic arms were safely away from collision with the bed or the patient. At the epigastrium, a medium sized Jose Antonio liver retractor was placed under direct visualization with the [employer] Technologist placed under the right shoulder of the patient. Next, 12-mm robot stapler port was placed along the right upper quadrant. The camera 8-mm port was maintained along the epigastrium. The patient was repositioned in reverse Trendelenburg position at 21-degrees after lowering the bed. The robot was docked along the left side of the patient. Using a grasper for arm 4, a veseel sealer for arm 3, including grasper for arm 1, the robotic system was docked and primed as described. Instruments were interchanged by the billing and accounting staff assistant for stapler loads. The camera w as placed at 30-degrees down. I had sat at the console. The pylorus was identified and 6 cm proximally along the greater curvature of the stomach, the short gastrics were mobilized upwards to the angle of His using a vessel sealer. Hemostasis was excellent during this portion of the procedure. Next, the upper pole of the stomach was adherent to the left murali, which was gently dissected free using atraumatic grasper. The nursing box truck washer placed a 40-Ivorian blunted tip bougie into the stomach. Robotic stapler green loads 60 mm x 7 were used to create the sleeve. Initial firing was across the antrum of the stomach towards the angle of His. The staple line was completely hemostatic and linear without corkscrewing. Hemostasis was excellent. The space from the angularis incisura of the sleeve was approximately 4 cm. I then went to the head of the bed to perform the intraoperative esophagogastroduodenoscopy leak test. The upper pole of the stomach was bathed using normal saline solution. The scope was withdrawn with careful inspection along the staple line for which no leaks were found along the entire length. Additionally, the sleeve was completely hemostatic without any encroachment along the angularis incisura. Its topology was a soft "J". No stricture was encountered upon placement of the scope. The GI tract was desufflated. The patient tolerated this portion of the procedure well. The scope was completely withdrawn. The robot was undocked. I then rescrubbed into case, whereby the irrigation fluid was aspirated from the abdominal cavity. Tisseel fibrin sealant was placed along the staple length. Once dried the Jose Antonio liver retractor was removed. Attention was now brought to removal of the specimen. The distal end of the sleeve gastrectomy specimen was brought out through the 12 mm port at the left upper quadrant. The specimen was gently removed en total, corresponding to 30 cm x 4.5 cm sleeve gastrectomy specimen. No contamination had occurred during this process. All instruments and pneumoperitoneum including irrigation fluid was removed from the abdominal cavity. The 12 mm port site was irrigated with warm normal saline solution and diluted hydron peroxide. The 12-mm port site was reapproximated using 0 Vicryl and Scar-Raman of the left upper quadrant. The final incisions were closed using subcuticular interrupted suture of 4-0 Monocryl. Dermabond was applied to the skin once the skin had been cleansed. OptiFoam dressing was placed along the stomach extraction site. At the end of the procedure, needle, sponge, and instrument count was verified correct by the surgical appliances salesperson. The patient was taken to the postanesthesia care unit in stable condition. He had tolerated the procedure well. Intraoperative films and findings were reviewed with the patient's family.
[2020-10-30] MEDS: SIMETHICONE 40 MG/0.6 ML DROPS 2,000 MG/30 ML BOTTLE PO SCH ×2 (15:20→17:14)
[2020-10-30] MEDS: ALBUTEROL NEBULIZED 2.5 MG/3 ML INHALATION SCH ×2 (16:57→20:32)
[2020-10-30] MEDS: ACETAMINOPHEN IV (For NPO) 1,000 MG in EMPTY BAG 1 BAG IVPB SCH (17:12)
[2020-10-30] MEDS: DEXAMETHASONE SOD PHOSPHATE 4 MG/ML 1 ML VIAL IV SCH (17:13)
[2020-10-30] MEDS: HYOSCYAMINE ORAL DROPS 1.875 MG/15 ML BOTTLE PO SCH (17:13)
[2020-10-30] MEDS: KETOROLAC 15 MG/ML 1 ML VIAL IVP SCH (17:13)
[2020-10-30] MEDS: ONDANSETRON 4 MG/2 ML VIAL IVP SCH (17:14)
[2020-10-30] MEDS ORDERED: KETOROLAC 15 MG/ML 1 ML VIAL IVP SCH (18:00)
[2020-10-30] MEDS ORDERED: ceFAZolin 3 GM in SODIUM CHLORIDE 0.9% 100 ML IVPB SCH (19:00)
[2020-10-30] MEDS: TOPIRAMATE 25 MG TAB PO SCH (19:41)
[2020-10-30] MEDS: 0.9% NACL WITH KCL 20 MEQ/L 1,000 ML IV SCH ×2 (20:01→21:17)
[2020-10-30] MEDS ORDERED: TRIMETHOBENZAMIDE 100 MG/ML 2 ML VIAL IM PRN (23:59)
[2020-10-30] MEDS ORDERED: DEXAMETHASONE SOD PHOSPHATE 10 MG/ML 1 ML VIAL IV PRN (23:59)
[2020-10-31] MEDS: HYOSCYAMINE ORAL DROPS 1.875 MG/15 ML BOTTLE PO SCH ×3 (00:30→12:23)
[2020-10-31] MEDS: SIMETHICONE 40 MG/0.6 ML DROPS 2,000 MG/30 ML BOTTLE PO SCH ×3 (00:30→12:23)
[2020-10-31] MEDS: DEXAMETHASONE SOD PHOSPHATE 4 MG/ML 1 ML VIAL IV SCH ×3 (00:34→12:24)
[2020-10-31] MEDS: ONDANSETRON 4 MG/2 ML VIAL IVP SCH ×3 (00:34→12:25)
[2020-10-31] MEDS: KETOROLAC 15 MG/ML 1 ML VIAL IVP SCH ×3 (00:34→12:25)
[2020-10-31] MEDS: ACETAMINOPHEN IV (For NPO) 1,000 MG in EMPTY BAG 1 BAG IVPB SCH ×3 (00:47→12:22)
[2020-10-31] MEDS: 0.9% NACL WITH KCL 20 MEQ/L 1,000 ML IV SCH (05:15)
[2020-10-31] MEDS: ALBUTEROL NEBULIZED 2.5 MG/3 ML INHALATION SCH ×3 (07:58→15:48)
[2020-10-31] MEDS: TOPIRAMATE 25 MG TAB PO SCH (07:59)
[2020-10-31] MEDS ORDERED: 0.9% NACL WITH KCL 20 MEQ/L 1,000 ML IV SCH (08:00)
[2020-10-31] MEDS ORDERED: PANTOPRAZOLE 40 MG/10 ML VIAL IV SCH (09:00)
[2020-10-31] MEDS ORDERED: ENOXAPARIN 40 MG/0.4 ML SYRINGE SQ SCH (09:00)
--- NOTE | 2020-10-31 09:44 | FL ---
EXAMINATION TYPE: FL UGI DATE OF EXAM: 10/31/2020 COMPARISON: NONE HISTORY: Post gastric sleeve TECHNIQUE: A single contrast UGI study is performed. 1 ounce of Isovue-370. 20 seconds of fluoroscop y time. 3 images submitted. FINDINGS: There is a small amount of free intraperitoneal air. This likely is postsurgical. Contrast was swallo wed without difficulty and passed and the esophagus without delay. Esophageal peristalsis and motilit y normal. No evidence of obstruction or extravasation. IMPRESSION: 1. No evidence of obstruction or extravasation. 2. Small amount of free intraperitoneal air likely postsurgical. Correlate clinically.
[2020-10-31 10:35] VITALS: BMI 39.6
[2020-10-31 11:42] LABS: Basophils # (A) 0.01 X 10*3/uL (0.00-0.10); Basophils % (A) 0.1 %; Eosinophils # (A) 0 X 10*3/uL (0.04-0.35); Eosinophils % (A) 0 %; HCT 43.5 % (39.6-50.0); HGB 14.3 g/dL (13.0-17.0); Lymphocytes # (A) 0.57 X 10*3/uL (0.90-5.00); Lymphocytes % (A) 5.4 %; MCH 31.7 pg (27.0-32.0); MCHC 32.9 g/dL (32.0-37.0); MCV 96.5 fL (80.0-97.0); Mean Platelet Volume 11.4 fL (9.5-12.2); Monocytes # (A) 0.58 X 10*3/uL (0.20-1.00); Monocytes % (A) 5.5 %; Neutrophils # (A) 9.39 X 10*3/uL (1.80-7.70); Neutrophils % (A) 88.6 %; Platelet Count 233 X 10*3/uL (140-440); RBC 4.51 X 10*6/uL (4.40-5.60); RDW 13.4 % (11.5-14.5); WBC 10.59 X 10*3/uL (4.50-10.00)
[2020-10-31 12:29] LABS: African American GFR (CKD) 135.1 (60.0-200.0); Anion Gap 9.4 mmol/L (4.00-12.00); Calcium 8.3 mg/dL (8.7-10.3); Carbon Dioxide 20.6 mmol/L (21.6-31.8); Magnesium 1.8 mg/dL (1.5-2.4); Non-African American GFR(CKD) 116.6 (60.0-200.0); Phosphorus 2.1 mg/dL (2.4-5.1); Potassium 4.7 mmol/L (3.5-5.5)
[2020-10-31 13:45] VITALS: BP 126/76; RESP 17; TEMP 97.9
--- NOTE | 2020-10-31 14:51 | P.DS ---
Providers Date of admission: 10/30/20 08:50 Expected date of discharge: 10/31/20 Attending physician: Rochelle Hernandez Primary care physician: [facility] [employer] [facility] Course: Patient's mother's bedside. Tolerating diet. Passes esophagram. Reports abdominal pain. Patient had been seen by the bariatric dietitian. Decision instructions reviewed appears stable for discharge. Follow-up in the bariatric center in 3 days. Patient Condition at Discharge: Good Plan - Discharge Summary Discharge Rx Participant: No New Discharge Prescriptions: No Action Escitalopram Oxalate [Lexapro] 5 mg PO DAILY PRN PRN Reason: ANXIETY Naproxen 500 mg PO BID PRN PRN Reason: PAIN Topiramate [Topamax] 25 mg PO BID Discharge Medication List Escitalopram Oxalate [Lexapro] 5 mg PO DAILY PRN 03/04/17 [History] Naproxen 500 mg PO BID PRN 04/19/20 [History] Topiramate [Topamax] 25 mg PO BID 10/27/20 [History]
[2020-10-31 15:50] VITALS: PULSE 72
[2020-11-01] MEDS ORDERED: bisacodyL 5 MG TABLET.DR PO PRN (08:00)
== END 2020-10-31 16:55 | disposition home or self-care (01) | DRG 621 ==
LOC: 2ORMAIN 08:50 → 4SSUR 13:47
PROVIDERS: ADMIT Surgery Plastic and Reconstructive Surgery; ATTEND Surgery Plastic and Reconstructive Surgery
PROC: 0DJ08ZZ Inspection of Upper Intestinal Tract, Via Natural or Artificial Opening Endoscopic (ICD-10-PCS; principal; 2020-10-30 11:55)
PROC: 8E0W4CZ Robotic Assisted Procedure of Trunk Region, Percutaneous Endoscopic Approach (ICD-10-PCS; principal; 2020-10-30 11:55)
PROC: 0DB64Z3 Excision of Stomach, Percutaneous Endoscopic Approach, Vertical (ICD-10-PCS; principal; 2020-10-30 11:55)
DX: E66.01 Morbid (severe) obesity due to excess calories (principal); R16.0 Hepatomegaly, not elsewhere classified; G35 Multiple sclerosis; Z68.39 Body mass index [BMI] 39.0-39.9, adult; K76.0 Fatty (change of) liver, not elsewhere classified; F32.9 Major depressive disorder, single episode, unspecified; Z20.822 Contact with and (suspected) exposure to COVID-19; G43.909 Migraine, unspecified, not intractable, without status migrainosus; G47.30 Sleep apnea, unspecified; M19.90 Unspecified osteoarthritis, unspecified site; M47.9 Spondylosis, unspecified; K29.70 Gastritis, unspecified, without bleeding; K29.80 Duodenitis without bleeding; F41.1 Generalized anxiety disorder; Z79.899 Other long term (current) drug therapy; Z71.3 Dietary counseling and surveillance; Z80.8 Family history of malignant neoplasm of other organs or systems
CPT/HCPCS: 74240; 80051; 82310; 82565; 83735; 84100; 84520; 85025; 86850; 86900; 86901; 87635; 88307; 94640; 94760; 94762

== ENCOUNTER → 2020-11-02 | Outpatient (CLI) | payer OTHER ==
[~2020-11-02] MED LIST changes: -ACETAMINOPHEN TAB 500 MG TAB PO PRN; -CHLORHEXIDINE GLUCONATE 15 ML CUP MUCOUS MEM PRN; -DEXAMETHASONE SOD PHOSPHATE 4 MG/ML 1 ML VIAL IV ONE; -ENOXAPARIN 40 MG/0.4 ML SYRINGE SQ PRN; -GABAPENTIN 300 MG CAP PO PRN; -HYDROmorphone 0.5 MG/0.5 ML SYRINGE IVP PRN; -MIDAZOLAM 2 MG/2 ML VIAL IV PRN; -ONDANSETRON 4 MG/2 ML VIAL IVP ONE; -PANTOPRAZOLE 40 MG/10 ML VIAL IVP PRN; -SCOPOLAMINE 1.5MG/72HR PATCH TRANSDERM PRN; +SODIUM CHLORIDE 0.9% 1,000 ML IV ONE; -TAMSULOSIN 0.4 MG CAP.ER.24H PO PRN; -ceFAZolin 3 GM in SODIUM CHLORIDE 0.9% 100 ML IVPB PRN
[2020-11-02 13:53] VITALS: BMI 38.9
[2020-11-02 14:05] VITALS: BP 113/65; PULSE 53; RESP 16; TEMP 97.9
--- NOTE | 2020-11-02 16:10 | P.PN ---
Subjective Progress Note Date: 11/02/20 He has lost over 30+ pounds. Mother is at bedside. Reports feeling gassy. Dressing discontinue. No infection. Follow-up in one week. Ambulation encouraged. Objective - Vital Signs Vital signs: Vital Signs Temp 97.9 F 11/02/20 14:01 Pulse 53 L 11/02/20 14:01 Resp 16 11/02/20 14:01 BP 113/65 11/02/20 14:01 Pulse Ox Intake & Output 11/01/20 11/02/20 11/02/20 18:59 06:59 18:59 Weight 133.81 kg
== END ==
LOC: BARWHC3 13:10
PROVIDERS: ATTEND Surgery Plastic and Reconstructive Surgery
DX: E86.0 Dehydration (principal); E66.01 Morbid (severe) obesity due to excess calories; Z71.3 Dietary counseling and surveillance; Z68.38 Body mass index [BMI] 38.0-38.9, adult
CPT/HCPCS: 97803; 96360; G0463; 99211

== ENCOUNTER → 2020-11-08 | Outpatient (CLI) | payer OTHER ==
[2020-11-08 15:09] VITALS: BP 115/78; PULSE 69; RESP 18; TEMP 98.1; BMI 37.8
--- NOTE | 2020-11-08 15:14 | P.PN ---
Subjective Progress Note Date: 11/08/20 DATE OF SERVICE: 11/08/2020 CHIEF COMPLAINT: Status post sleeve gastrectomy HISTORY OF PRESENT ILLNESS: Jude Batres is a 35-year-old male who is status post sleeve gastrectomy 10/30/2020. He is 1 week out. He comes in with weight loss of 30 pounds in 1 month. He is doing well. He has a new protein shake. He is drinking fluids regularly. No reports of gastroesophageal reflux disease. His pain at his left upper quadrant is only with standing up. He is doing very well. At height of 6 feet 1 inches, ideal body weight is 188 pounds. His highest weight is 329 pounds, BMI 43.5. He comes in 286 pounds from 313 pounds, 1 month ago. He has lost 27 pounds in 2 months. His body mass index is 37.9. He is 98 pounds overweight. PHYSICAL EXAM: VITAL SIGNS: Height 6 foot 1 inches, weight 286 pounds. BMI 37.9 Vital Signs Temp 98.1 F 11/08/20 14:58 Pulse 69 11/08/20 14:58 Resp 18 11/08/20 14:58 BP 115/78 11/08/20 14:58 Pulse Ox GENERAL: Well-developed in no acute distress. HEENT: No scleral icterus. Extraocular movements grossly intact. Hears conversational speech. No nasal drainage. NECK: Supple without lymphadenopathy. CHEST: Nonlabored respirations with equal bilateral excursions. CARDIOVASCULAR: Regular rate and regular rhythm. Distal 2+ pulses. ABDOMEN: Incisions clean dry and intact. No cellulitis or infection. MUSCULOSKELETAL: No clubbing, cyanosis. NEURO: No focal or lateralizing signs. Cranial nerves 2 through 12 grossly within normal limits. PSYCH: Appropriate affect. Alert and oriented to person, place and time. SKIN: Good skin turgor. Well perfused. ASSESSMENT: 1. Morbid obesity due to excess calories 2. Body mass index of 43.4, initial to 37.9 3. Depressive disorder 4. Osteoarthritis of the lower back 5. Gastritis 6. Duodenitis 7. Multiple sclerosis 8. Status post sleeve gastrectomy 9. Dietary surveillance and counseling PLAN: 1. He is doing very well. 2. Protein intake 90 g daily advised 3. Follow-up in 1 month postop. Objective - Vital Signs Vital signs: Vital Signs Temp 98.1 F 11/08/20 14:58 Pulse 69 11/08/20 14:58 Resp 18 11/08/20 14:58 BP 115/78 11/08/20 14:58 Pulse Ox Intake & Output 11/07/20 11/08/20 11/08/20 18:59 06:59 18:59 Weight 130.226 kg
== END ==
LOC: BARWHC3 14:38
PROVIDERS: ATTEND Surgery Plastic and Reconstructive Surgery
DX: E66.01 Morbid (severe) obesity due to excess calories (principal); F32.9 Major depressive disorder, single episode, unspecified; G35 Multiple sclerosis; K29.70 Gastritis, unspecified, without bleeding; M47.9 Spondylosis, unspecified; K29.80 Duodenitis without bleeding; Z98.84 Bariatric surgery status; Z71.3 Dietary counseling and surveillance; Z68.37 Body mass index [BMI] 37.0-37.9, adult
CPT/HCPCS: 99211

== ENCOUNTER → 2020-11-29 | Outpatient (CLI) | payer OTHER ==
[2020-11-29 14:01] VITALS: BP 111/76; PULSE 64; RESP 18; TEMP 97.9; BMI 36.1
--- NOTE | 2020-11-29 14:31 | P.PN ---
Subjective Progress Note Date: 11/29/20 DATE OF SERVICE: 11/29/2020 CHIEF COMPLAINT: Status post sleeve gastrectomy HISTORY OF PRESENT ILLNESS: Jude Batres is a 35-year-old male who is status post sleeve gastrectomy 10/30/2020. He is 1 month out. He is losing weight quickly. He is adjusting to eating less. He reports having left overs when he completes his meals. He has lost 20 pounds in 1 month. No reports of gastroesophageal reflux disease. He is eating enough protein. He reports occasional belly pain with poor posture. At height of 6 feet 1 inches, ideal body weight is 188 pounds. His highest weight is 329 pounds, BMI 43.5. He comes in 273 pounds from 286 pounds, 3 weeks ago. He has lost 13 pounds in 3 weeks. His body mass index is 36.1. He is 85 pounds overweight. PHYSICAL EXAM: VITAL SIGNS: Height 6 foot 1 inches, weight 273 pounds. BMI 36.1 Vital Signs Temp 97.9 F 11/29/20 13:54 Pulse 64 11/29/20 13:54 Resp 18 11/29/20 13:54 BP 111/76 11/29/20 13:54 Pulse Ox GENERAL: Well-developed in no acute distress. HEENT: No scleral icterus. Extraocular movements grossly intact. Hears conversational speech. No nasal drainage. NECK: Supple without lymphadenopathy. CHEST: Nonlabored respirations with equal bilateral excursions. CARDIOVASCULAR: Regular rate and regular rhythm. Distal 2+ pulses. ABDOMEN: Incisions granulated. No hernias. MUSCULOSKELETAL: No clubbing, cyanosis. NEURO: No focal or lateralizing signs. Cranial nerves 2 through 12 grossly within normal limits. PSYCH: Appropriate affect. Alert and oriented to person, place and time. SKIN: Good skin turgor. Well perfused. ASSESSMENT: 1. Morbid obesity due to excess calories 2. Body mass index of 43.4, initial to 36.1 3. Depressive disorder 4. Osteoarthritis of the lower back 5. Gastritis 6. Duodenitis 7. Multiple sclerosis 8. Status post sleeve gastrectomy 9. Dietary surveillance and counseling PLAN: 1. Recommend bariatric metabolic panel at 1 month post op. 2. He may start multivitamins. 3. Recommend transition to lifting to 100+ pounds prior to return to work. 4. May return to work December 30. 5. Strength training prior to return to work advised. Objective - Vital Signs Vital signs: Vital Signs Temp 97.9 F 11/29/20 13:54 Pulse 64 11/29/20 13:54 Resp 18 11/29/20 13:54 BP 111/76 11/29/20 13:54 Pulse Ox Intake & Output 11/28/20 11/29/20 11/29/20 18:59 06:59 18:59 Weight 124.284 kg - Labs CBC & Chem 7: 11/29/20 15:11 11/29/20 15:11
--- NOTE | 2020-11-29 14:32 | P.PN ---
Progress Note - Text Progress Note Date: 11/29/20 To whom it may concern: Jude Batres is under my surgical care. He may return to work without r estrictions January 01, 2021. Regards, Rochelle Hernandez MD, FACS
[2020-11-29 16:34] LABS: HCT 49.8 % (39.0-53.0); HGB 16.4 gm/dL (13.0-17.5); MCH 31.6 pg (25.0-35.0); MCHC 32.9 g/dL (31.0-37.0); MCV 96.1 fL (80.0-100.0); Mean Platelet Volume 9.1; Platelet Count 195 k/uL (150-450); RBC 5.18 m/uL (4.30-5.90); RDW 13.8 % (11.5-15.5)
[2020-11-29 22:40] LABS: INR 1.1 (0.90-1.11); Partial Thromboplastin Time 28.9 sec (23.5-31.0); Prothrombin Time 11.9 sec (9.9-11.9)
[2020-11-30 01:30] LABS: Hemoglobin A1C 5.5 % (4.0-6.0)
[2020-11-30 03:28] LABS: % Iron Saturation 23.46 (15.00-50.00); African American GFR (CKD) 128.7 (60.0-200.0); Albumin 4.7 g/dL (3.80-4.90); Albumin/Globulin Ratio 1.81 (1.60-3.17); Anion Gap 11.4 mmol/L (4.00-12.00); Calcium 9.6 mg/dL (8.7-10.3); Carbon Dioxide 24.6 mmol/L (21.6-31.8); Chol/HDL Ratio 4.34; Globulin 2.6 g/dL (1.6-3.3); LDL Cholesterol,Calculated 119.8 mg/dL (0.0-131.0); Magnesium 1.8 mg/dL (1.5-2.4); Phosphorus 3.2 mg/dL (2.4-5.1); Potassium 4.3 mmol/L (3.5-5.5); Total Bilirubin 1.1 mg/dL (0.3-1.2); Total Protein 7.3 g/dL (6.2-8.2); VLDL Calculation 17.2 mg/dL (5.00-40.00)
[2020-11-30 03:37] LABS: Folate, Serum 5.8 ng/mL
[2020-11-30 04:28] LABS: Ferritin 528.1 ng/mL (22.0-322.0)
[2020-11-30 14:12] LABS: Zinc, Serum 93 ug/dL (60-130)
[2020-12-01 06:50] LABS: Vitamin A 35 ug/dL (38-106)
[2020-12-01 06:52] LABS: Vit B1(Thiamine) 62 ug/L (38-122)
[2020-12-04 19:19] LABS: Selenium 116 mcg/L (63-160)
== END | disposition home or self-care (01) ==
LOC: BARWHC3 13:19
PROVIDERS: ATTEND Surgery Plastic and Reconstructive Surgery
DX: E66.01 Morbid (severe) obesity due to excess calories (principal); Z71.3 Dietary counseling and surveillance; F32.9 Major depressive disorder, single episode, unspecified; M19.90 Unspecified osteoarthritis, unspecified site; K29.70 Gastritis, unspecified, without bleeding; K29.80 Duodenitis without bleeding; G35 Multiple sclerosis; Z98.84 Bariatric surgery status; Z68.41 Body mass index [BMI] 40.0-44.9, adult
CPT/HCPCS: 84255; 84134; 84425; 80061; 80053; 82607; 82728; 82525; 82746; 83540; 83550; 83735; 84100; 84443; 84590; 84630; 85027; 85610; 85730; 82306; 83970; 83036; 97803; G0463; 99211

== ENCOUNTER → 2021-01-10 | Outpatient (CLI) | payer OTHER ==
--- NOTE | 2021-01-10 13:14 | P.PN ---
Subjective Progress Note Date: 01/10/21 He has lost 80 pounds. He ate ortez tomatoes and a bag of them and had abdominal pain from it. He took nausea medication and drank too much on Friday, 4 days ago. On Friday, 3 days ago he took Omeprazole and had improvement. He was walking and fell to the ground and was pale. He reports temperature of 101.0. He reports racing of the heart. He reports dark urine. He comes in with severe dehydration with dark urine and dry skin, pale. He has tried to increase his fluid. He reports headache and ears. He reports epigastric pain. Everyone in his family has gallbladder problem. His mother still has her gallbladder. Recommend IV fluids for dehydration Get labs for change in medical condition US Gallbladder HIDA scan He has a gallbladder. He reports RUQ pain.
[2021-01-10 13:28] VITALS: BP 113/70; PULSE 98; RESP 18; TEMP 98.3; BMI 33.2
== END | disposition home or self-care (01) ==
LOC: BARWHC3 12:31
PROVIDERS: ATTEND Surgery Plastic and Reconstructive Surgery
DX: E66.01 Morbid (severe) obesity due to excess calories (principal)
CPT/HCPCS: 99211

== ENCOUNTER → 2021-01-10 | Outpatient (CLI) | payer OTHER ==
[~2021-01-10] MED LIST changes: -SODIUM CHLORIDE 0.9% 1,000 ML IV ONE; +SODIUM CHLORIDE 0.9% 1,000 ML IV SCH
[2021-01-10 13:47] VITALS: BP 116/78; PULSE 76; RESP 16; TEMP 97.9
[2021-01-10 14:30] LABS: HCT 50.6 % (39.0-53.0); HGB 16.6 gm/dL (13.0-17.5); MCH 32.4 pg (25.0-35.0); MCHC 32.9 g/dL (31.0-37.0); MCV 98.5 fL (80.0-100.0); Mean Platelet Volume 9.3; Platelet Count 282 k/uL (150-450); RBC 5.14 m/uL (4.30-5.90); RDW 13.9 % (11.5-15.5); WBC 6.2 k/uL (3.8-10.6)
[2021-01-10 14:39] LABS: Band Neutrophils % 2 %; Basophils # (M) 0.12 k/uL (0-0.2); Lymphocytes # (M) 0.81 k/uL (1.0-4.8); Monocytes # (M) 1.98 k/uL (0-1.0); Neutrophils % (M) 51 %; Nucleated Red Blood Cells 0 /100 WBC (0-0); Total Cells Counted 100
[2021-01-10 14:44] LABS: ALT 24 U/L (4-49); AST 32 U/L (17-59); African American GFR (CKD) >90 (>60 ml/min/1.73 sqM); Albumin 4.1 g/dL (3.5-5.0); Alkaline Phosphatase 127 U/L (38-126); Anion Gap 12 mmol/L; Blood Urea Nitrogen 12 mg/dL (9-20); Calcium 9.3 mg/dL (8.4-10.2); Carbon Dioxide 23 mmol/L (22-30); Chloride 102 mmol/L (98-107); Glucose 113 mg/dL (74-99); Non-African American GFR(CKD) >90 (>60 ml/min/1.73 sqM); Potassium 4.4 mmol/L (3.5-5.1); Sodium 137 mmol/L (137-145); Total Bilirubin 1.6 mg/dL (0.2-1.3); Total Protein 7.1 g/dL (6.3-8.2)
== END | disposition home or self-care (01) ==
LOC: PROCWHC3 13:24
PROVIDERS: ATTEND Surgery Plastic and Reconstructive Surgery
DX: E86.0 Dehydration (principal)
CPT/HCPCS: 36415; 80053; 85025; 96360; 96361

== ENCOUNTER 2021-01-11 17:12 | Inpatient (IN) | payer OTHER ==
[2021-01-11] MEDS ORDERED: HYDROmorphone 0.5 MG/0.5 ML SYRINGE IVP STA (17:59)
[2021-01-11] MEDS ORDERED: SODIUM CHLORIDE 0.9% 1,000 ML IV STA (17:59)
--- NOTE | 2021-01-11 18:25 | ED ---
General Adult HPI - General Chief complaint: Abdominal Pain Stated complaint: Sent from for gallbladder Time Seen by Provider: 01/11/21 17:22 Source: patient, RN notes reviewed Mode of arrival: ambulatory Limitations: no limitations - History of Present Illness Initial comments: 35-year-old male with a past medical history migraines, multiple sclerosis presents to the emergency room for chief point of right upper quadrant pain. Patient reports that he had a gastric sleeve placed in October. On 5 days ago patient started to develop right upper quadrant pain. This started after he was drinking. Patient was seen by his surgeon and had blood work done. His bilirubin was mildly elevated. His surgeon was concerned for gallbladder pathology and sent him to the emergency room. Patient does report that he had a fever of 101 but his temperature is been normal since Friday.Patient has no other complaints at this time including shortness of breath, chest pain, abdominal pain, nausea or vomiting, headache, or visual changes. - Related Data Home Medications Medication Instructions Recorded Confirmed Escitalopram Oxalate [Lexapro] 5 mg PO DAILY PRN 03/04/17 01/10/21 Topiramate [Topamax] 25 mg PO BID 10/27/20 01/10/21 Previous Rx's Medication Instructions Recorded Acetaminophen Tab [Tylenol Tab] 1,000 mg PO Q6HR PRN #30 tablet 10/31/20 Omeprazole [PriLOSEC] 40 mg PO DAILY #30 capsule. 10/31/20 Ondansetron Odt [Zofran Odt] 4 mg PO Q8HR PRN #9 tab 10/31/20 Simethicone 40 mg/0.6 ml Drops 40 mg PO PCHS PRN #30 ml 10/31/20 [Mylicon Drops] bisacodyL [Dulcolax] 5 mg PO DAILY PRN #10 tablet. 10/31/20 Allergies Allergy/AdvReac Type Severity Reaction Status Date / Time No Known Allergies Allergy Verified 01/10/21 13:19 Review of Systems ROS Statement: Those systems with pertinent positive or pertinent negative responses have been documented in the HPI. ROS Other: All systems not noted in ROS Statement are negative. Past Medical History Past Medical History: No Reported History Additional Past Medical History / Comment(s): migraines, Multiple sclerosis, History of Any Multi-Drug Resistant Organisms: None Reported Past Surgical History: Bariatric Surgery Additional Past Surgical History / Comment(s): egd. bariatric sleeve surgery 10/30/2020. Past Anesthesia/Blood Transfusion Reactions: No Reported Reaction Additional Past Anesthesia/Blood Transfusion Reaction / Comment(s): never had anesthesia Past Psychological History: Anxiety, Depression Smoking Status: Former smoker Past Alcohol Use History: None Reported Past Drug Use History: None Reported - Past Family History Mother Family Medical History: Cancer Additional Family Medical History / Comment(s): thyroid cancer General Exam Limitations: no limitations General appearance: alert, in no apparent distress Head exam: Present: atraumatic, normocephalic, normal inspection Eye exam: Present: normal appearance, PERRL, EOMI. Absent: scleral icterus, conjunctival injection, periorbital swelling ENT exam: Present: normal exam, mucous membranes moist Neck exam: Present: normal inspection, full ROM. Absent: tenderness, meningismus, lymphadenopathy Respiratory exam: Present: normal lung sounds bilaterally. Absent: respiratory distress, wheezes, rales, rhonchi, stridor Cardiovascular Exam: Present: regular rate, normal rhythm, normal heart sounds. Absent: systolic murmur, diastolic murmur, rubs, gallop, clicks GI/Abdominal exam: Present: soft, tenderness (Right upper quadrant tenderness), normal bowel sounds. Absent: distended, guarding, rebound, rigid Neurological exam: Present: alert Course Vital Signs 01/11/21 17:14 Temperature 98.2 F Pulse Rate 66 Respiratory 18 Rate Blood Pressure 115/74 O2 Sat by Pulse 98 Oximetry Medical Decision Making - Medical Decision Making Vitals are stable. CBC CMP is unremarkable. Mild elevation in alkaline phosphatase. Urinalysis does show 1+ bilirubin. Ultrasound was obtained which showed a hydropic gallbladder. CT abdomen and pelvis showed cholecystitis. Patient was started on Zosyn. Dr. Hernandez had previously called and requested to admit her for surgery tomorrow. We'll make patient nothing by mouth after midnight. - Lab Data Result diagrams: 01/11/21 18:48 01/11/21 18:48 Lab Results 01/11/21 01/11/21 01/11/21 Range/Units 18:48 18:48 18:48 WBC 8.5 (3.8-10.6) k/uL RBC 4.77 (4.30-5.90) m/uL Hgb 15.4 (13.0-17.5) gm/dL Hct 45.5 (39.0-53.0) % MCV 95.3 (80.0-100.0) fL MCH 32.4 (25.0-35.0) pg MCHC 34.0 (31.0-37.0) g/dL RDW 13.6 (11.5-15.5) % Plt Count 258 (150-450) k/uL MPV 9.0 Neutrophils % (Manual) 49 % Band Neuts % (Manual) 14 % Lymphocytes % (Manual) 14 % Monocytes % (Manual) 23 % Neutrophils # (Manual) 5.30 (1.3-7.7) k/uL Lymphocytes # (Manual) 1.19 (1.0-4.8) k/uL Monocytes # (Manual) 1.96 H (0-1.0) k/uL Nucleated RBCs 0 (0-0) /100 WBC Manual Slide Review Performed Sodium 138 (137-145) mmol/L Potassium 4.0 (3.5-5.1) mmol/L Chloride 104 (98-107) mmol/L Carbon Dioxide 23 (22-30) mmol/L Anion Gap 11 mmol/L BUN 9 (9-20) mg/dL Creatinine 0.76 (0.66-1.25) mg/dL Est GFR (CKD-EPI)AfAm >90 (>60 ml/min/1.73 sqM) Est GFR (CKD-EPI)NonAf >90 (>60 ml/min/1.73 sqM) Glucose 99 (74-99) mg/dL Plasma Lactic Acid Juan Carlos (0.7-2.0) mmol/L Calcium 9.2 (8.4-10.2) mg/dL Total Bilirubin 1.3 (0.2-1.3) mg/dL AST 55 (17-59) U/L ALT 49 (4-49) U/L Alkaline Phosphatase 158 H (38-126) U/L Total Protein 6.7 (6.3-8.2) g/dL Albumin 3.8 (3.5-5.0) g/dL Amylase 46 (30-110) U/L Lipase 124 (23-300) U/L Urine Color Dark Yellow Urine Appearance Cloudy (Clear) Urine pH 6.0 (5.0-8.0) Ur Specific [place] 1.031 (1.001-1.035) Urine Protein 1+ H (Negative) Urine Glucose (UA) Negative (Negative) Urine Ketones Trace H (Negative) Urine Blood Negative (Negative) Urine Nitrite Negative (Negative) Urine Bilirubin 1+ H (Negative) Urine Urobilinogen 8.0 (<2.0) mg/dL Ur Leukocyte Esterase Negative (Negative) Urine RBC <1 (0-5) /hpf Urine WBC 5 (0-5) /hpf Urine Mucus Many H (None) /hpf 01/11/21 Range/Units 18:48 WBC (3.8-10.6) k/uL RBC (4.30-5.90) m/uL Hgb (13.0-17.5) gm/dL Hct (39.0-53.0) % MCV (80.0-100.0) fL MCH (25.0-35.0) pg MCHC (31.0-37.0) g/dL RDW (11.5-15.5) % Plt Count (150-450) k/uL MPV Neutrophils % (Manual) % Band Neuts % (Manual) % Lymphocytes % (Manual) % Monocytes % (Manual) % Neutrophils # (Manual) (1.3-7.7) k/uL Lymphocytes # (Manual) (1.0-4.8) k/uL Monocytes # (Manual) (0-1.0) k/uL Nucleated RBCs (0-0) /100 WBC Manual Slide Review Sodium (137-145) mmol/L Potassium (3.5-5.1) mmol/L Chloride (98-107) mmol/L Carbon Dioxide (22-30) mmol/L Anion Gap mmol/L BUN (9-20) mg/dL Creatinine (0.66-1.25) mg/dL Est GFR (CKD-EPI)AfAm (>60 ml/min/1.73 sqM) Est GFR (CKD-EPI)NonAf (>60 ml/min/1.73 sqM) Glucose (74-99) mg/dL Plasma Lactic Acid Juan [place] 0.9 (0.7-2.0) mmol/L Calcium (8.4-10.2) mg/dL Total Bilirubin (0.2-1.3) mg/dL AST (17-59) U/L ALT (4-49) U/L Alkaline Phosphatase (38-126) U/L Total Protein (6.3-8.2) g/dL Albumin (3.5-5.0) g/dL Amylase (30-110) U/L Lipase (23-300) U/L Urine Color Urine Appearance (Clear) Urine pH (5.0-8.0) Ur Specific [place] (1.001-1.035) Urine Protein (Negative) Urine Glucose (UA) (Negative) Urine Ketones (Negative) Urine Blood (Negative) Urine Nitrite (Negative) Urine Bilirubin (Negative) Urine Urobilinogen (<2.0) mg/dL Ur Leukocyte Esterase (Negative) Urine RBC (0-5) /hpf Urine WBC (0-5) /hpf Urine Mucus (None) /hpf Disposition Clinical Impression: Abdominal pain, Cholecystitis Disposition: ADMITTED IP TO THIS HOSP Is patient prescribed a controlled substance at d/c from ED?: No Referrals: Frederick Cano MD [Primary Care Provider] - 1-2 days Time of Disposition: 22:13
[2021-01-11 19:25] LABS: ALT 49 U/L (4-49); AST 55 U/L (17-59); African American GFR (CKD) >90 (>60 ml/min/1.73 sqM); Albumin 3.8 g/dL (3.5-5.0); Alkaline Phosphatase 158 U/L (38-126); Amylase 46 U/L (30-110); Anion Gap 11 mmol/L; Blood Urea Nitrogen 9 mg/dL (9-20); Calcium 9.2 mg/dL (8.4-10.2); Carbon Dioxide 23 mmol/L (22-30); Chloride 104 mmol/L (98-107); Glucose 99 mg/dL (74-99); Lipase 124 U/L (23-300); Non-African American GFR(CKD) >90 (>60 ml/min/1.73 sqM); Sodium 138 mmol/L (137-145); Total Bilirubin 1.3 mg/dL (0.2-1.3); Total Protein 6.7 g/dL (6.3-8.2)
[2021-01-11 19:33] LABS: Appearance,Urine Cloudy (Clear); Bilirubin,Urine 1+ (Negative); Blood,Urine Negative (Negative); Color,Urine Dark Yellow; Glucose,Urine (UA) Negative (Negative); HCT 45.5 % (39.0-53.0); HGB 15.4 gm/dL (13.0-17.5); Ketones,Urine Trace (Negative); Leukocyte Esterase,Urine Negative (Negative); MCH 32.4 pg (25.0-35.0); MCV 95.3 fL (80.0-100.0); Mucus,Urine Many /hpf; Nitrite,Urine Negative (Negative); Platelet Count 258 k/uL (150-450); Protein,Urine 1+ (Negative); RBC 4.77 m/uL (4.30-5.90); RBC,Urine <1 /hpf (0-5); RDW 13.6 % (11.5-15.5); Specific Gravity,Urine 1.031 (1.001-1.035); WBC 8.5 k/uL (3.8-10.6); WBC,Urine 5 /hpf (0-5)
[2021-01-11] MEDS ORDERED: IOPAMIDOL CONTRAST (ORAL USE) VIAL PO PRN (20:07)
[2021-01-11 20:10] LABS: Band Neutrophils % 14 %; Lymphocytes # (M) 1.19 k/uL (1.0-4.8); Monocytes # (M) 1.96 k/uL (0-1.0); Neutrophils % (M) 49 %; Nucleated Red Blood Cells 0 /100 WBC (0-0); Total Cells Counted 100
--- NOTE | 2021-01-11 20:27 | US ---
EXAMINATION TYPE: US gallbladder DATE OF EXAM: 01/11/2021 COMPARISON: 12/23/2019 CLINICAL HISTORY: pain. RUQ pain, gastric sleeve 11/10 EXAM MEASUREMENTS: Liver Length: 19.2 cm Gallbladder Wall: 0.4 cm Right Kidney: 12.6 x 6.1 x 5.4 cm *technical limitations due to large amount of overlying bowel Pancreas: Obscured by bowel gas Liver: enlarged, heterogeneous. area of decreased echogenicity anterior liver = 13.5cm Gallbladder: hydropic = 12.0cm Evidence for sonographic Orourke's sign: No CBD: Obscured by overlying bowel gas Right Kidney: no evidence of hydronephrosis IMPRESSION: No acute sonographic process.
--- NOTE | 2021-01-11 21:22 | CT ---
EXAMINATION TYPE: CT abdomen pelvis w con DATE OF EXAM: 01/11/2021 COMPARISON: Ultrasound 01/11/2021 HISTORY: Abdominal pain, bariatric prep. Recent bariatric sx. Concern for gallbladder. CT DLP: 1684.4 mGycm Automated exposure control for dose reduction was used. TECHNIQUE: Helical acquisition of images was performed from the lung bases through the pelvis. CONTRAST: Performed without Oral Contrast and with IV Contrast, patient injected with 100 mL of Isovu e 300. FINDINGS: LUNG BASES: No acute findings. LIVER: Heterogeneous attenuation noted, most likely fatty infiltration. No focal findings. BILIARY TREE: The gallbladder is mildly distended. There is circumferential pericholecystic reticular edematous change which, together with high clinical suspicion and 4 mm gallbladder wall thickness on sonographic imaging, is consistent with a clinical diagnosis cholecystitis. In the expected position of the cystic duct there is a 5 mm calcification, likely a cholelith. The re mainder of the intrahepatic and extrahepatic biliary tree have normal appearance. PANCREAS: No significant abnormality is seen. SPLEEN: No significant abnormality is seen. ADRENALS: No significant abnormality is seen. KIDNEYS: No significant abnormality is seen. PERITONEAL CAVITY: No pneumoperitoneum or peritoneal fluid. RETROPERITONEAL ADENOPATHY: None visualized REPRODUCTIVE ORGANS: No significant abnormality is seen URINARY BLADDER: No significant abnormality is seen. PELVIC ADENOPATHY: None visualized. OSSEOUS STRUCTURES: No significant abnormality is seen. BOWEL: No significant abnormality is seen. OTHER: No acute vascular findings. IMPRESSION: IMAGING FINDINGS CONSISTENT WITH A CLINICAL DIAGNOSIS OF CHOLECYSTITIS.
[2021-01-11] MEDS ORDERED: PIPERACILLIN-TAZOBACTAM 3.375 GM in SODIUM CHLORIDE 0.9% 100 ML IVPB ONE (21:30)
[2021-01-11] MEDS ORDERED: ONDANSETRON 4 MG/2 ML VIAL IVP PRN (22:13)
[2021-01-11] MEDS ORDERED: NALOXONE 0.4 MG/ML 1 ML VIAL IV PRN (22:13)
[2021-01-11] MEDS: SODIUM CHLORIDE 0.9% 1,000 ML IV SCH (23:30)
[2021-01-12] MEDS: HYDROmorphone 0.5 MG/0.5 ML SYRINGE IVP PRN ×3 (00:25→15:34)
[2021-01-12] MEDS: SODIUM CHLORIDE 0.9% 1,000 ML IV SCH ×2 (07:37→15:35)
[2021-01-12] MEDS ORDERED: SODIUM CHLORIDE 0.9% 2,000 ML IV ONE (07:47)
--- NOTE | 2021-01-12 07:47 | P.GSHP ---
History of Present Illness H&P Date: 01/12/21 CHIEF COMPLAINT: Cholecystitis HISTORY OF PRESENT ILLNESS: The patient is a 35-year-old male status post sleeve gastrectomy 2 months ago was unsuccessful weight loss losing over 70 pounds in 3+ months. Patient presented to the office 2 days ago with episode of moderate severe right upper quadrant abdominal pain that has been persistent. He was given IV fluid hydration is reported extremely dark urine. He reports eating tomatoes and have a moderate severe epigastric abdominal pain that has radiated to the right upper quadrant. His mother bedside and confirm strong family history of gallbladder disease in all relatives except herself. Despite conservative management, patient continues to have moderate to severe abdominal pain. Patient submitted for cholecystitis. At height of 6 feet 1 inches, ideal body weight is 188 pounds. His highest weight is 329 pounds, BMI 43.5. He has lost 76 pounds lifetime. He comes in 253 pounds. Percent excess weight loss 54%, lifetime. PAST MEDICAL HISTORY: 1. Morbid obesity due to excess calories 2. Body mass index of 43.4, initial 3. Depressive disorder 4. Osteoarthritis of the lower back 5. Multiple sclerosis PAST SURGICAL HISTORY: 1. Sleeve gastrectomy, October 2020 2. Upper endoscopy HOME MEDICATIONS: Please see list in reviewed ALLERGIES: Please see list in reviewed SOCIAL HISTORY: No past tobacco use. FAMILY HISTORY: No family history of ulcerative colitis disease or Crohn's disease. Family history of morbid obesity. No lupus in the family. No reports of stomach or esophageal cancer. REVIEW OF ORGAN SYSTEMS: CONSTITUTIONAL: At height of 6 feet 1 inches, ideal body weight is 188 pounds. His highest weight is 329 pounds, BMI 43.5. He is 137 pounds overweight. HEENT: Denies any active troubles with vision or hearing. ENDOCRINE: Denies diabetes. No hypothyroidism. CARDIOVASCULAR: No past reports of palpitations or heart attacks or chest pain. RESPIRATORY: Has daytime somnolence. No recent pneumonia. GASTROINTESTINAL: Denies any bright red blood per rectum. No diarrhea. No constipation. MUSCULOSKELETAL: Has lower back pain and joint pain. Has osteoarthritis of the knees. Reports multiple sclerosis. NEURO: Has headaches. No seizure disorders. PSYCH: Has depression. No suicidal ideation. RHEUMATOLOGIC: No lupus. No rheumatoid arthritis. HEMATOLOGIC: Denies any abnormal bleeding or bruising. No personal history of DVTs. SKIN: No rash. No skin cancer. PHYSICAL EXAM: VITAL SIGNS: Afebrile vital signs stable GENERAL: Well-developed pleasant male in no acute distress. HEENT: No scleral icterus. Extraocular movements grossly intact. Moist buccal mucosa. NECK: Supple without lymphadenopathy. CHEST: Unlabored respirations. Equal bilateral excursions. CARDIOVASCULAR: Regular rate regular rhythm rhythm. Distal 2+ pulses. ABDOMEN: Soft, nondistended. Tender along the epigastrium and right upper quadrant. MUSCULOSKELETAL: No clubbing, cyanosis, or edema. NEURO : No focal or lateralizing signs. Cranial nerves II-12 within normal limits. PSYCH: Alert and oriented to person, place and time. SKIN: Well perfused. Good skin turgor. LABS: Reviewed. LFTs improve for total bilirubin. STUDIES: Ultrasound of the gallbladder independently reviewed demonstrating questionable sludge in the gallbladder dependent portion. Additional gallbladder wall thickening more than 3 mm. Findings suggestive of cholecystitis. This is my independent interpretation. CT of the abdomen and pelvis independently reviewed without evidence of leak. No fluid collection about the liver. No evidence of bowel obstruction. This is my independent interpretation. ASSESSMENT: 1. Epigastric and right upper quadrant abdominal pain 2. Cholecystitis 3. Status post sleeve gastrectomy 4. Status post intentional weight loss, over 70 pounds PLAN: 1. Will need a robotic cholecystectomy possible open. Benefits and risks were described. 2. Heparin for DVT prophylaxis 5000 units. 3. Antibiotic prophylaxis. 4. Admission for management of cholecystitis and surgical intervention. Past Medical History Past Medical History: No Reported History Additional Past Medical History / Comment(s): migraines, Multiple sclerosis, History of Any Multi-Drug Resistant Organisms: None Reported Past Surgical History: Bariatric Surgery Additional Past Surgical History / Comment(s): egd. bariatric sleeve surgery 10/30/2020. Past Anesthesia/Blood Transfusion Reactions: No Reported Reaction Additional Past Anesthesia/Blood Transfusion Reaction / Comment(s): never had anesthesia Past Psychological History: Anxiety, Depression Smoking Status: Never smoker Past Alcohol Use History: None Reported Past Drug Use History: None Reported - Past Family History Mother Family Medical History: Cancer Additional Family Medical History / Comment(s): thyroid cancer Medications and Allergies Home Medications Medication Instructions Recorded Confirmed Type Topiramate [Topamax] 25 mg PO BID 10/27/20 01/11/21 History Topiramate [Trokendi Xr] 50 mg PO HS 01/11/21 01/11/21 History Acetaminophen Tab [Tylenol Tab] 1,000 mg PO Q6HR PRN #30 tablet 01/12/21 Rx Ibuprofen [Motrin] 600 mg PO Q8HR PRN #30 tab 01/12/21 Rx Omeprazole [PriLOSEC] 40 mg PO DAILY #14 cap 01/12/21 Rx Simethicone 40 mg/0.6 ml Drops 80 mg PO Q6HR PRN #30 ml 01/12/21 Rx [Mylicon Drops] Allergies Allergy/AdvReac Type Severity Reaction Status Date / Time No Known Allergies Allergy Verified 01/10/21 13:19 Surgical - Exam Vital Signs Temp Pulse Resp BP Pulse Ox 98.2 F 66 18 115/74 98 01/11/21 17:14 01/11/21 17:14 01/11/21 17:14 01/11/21 17:14 01/11/21 17:14 Results - Labs 01/11/21 18:48 01/11/21 18:48 Abnormal Lab Results - Last 24 Hours (Table) 01/11/21 01/11/21 01/11/21 Range/Units 18:48 18:48 18:48 Monocytes # (Manual) 1.96 H (0-1.0) k/uL Alkaline Phosphatase 158 H (38-126) U/L Urine Protein 1+ H (Negative) Urine Ketones Trace H (Negative) Urine Bilirubin 1+ H (Negative) Urine Mucus Many H (None) /hpf Diabetes panel 01/11/21 Range/Units 18:48 Sodium 138 (137-145) mmol/L Potassium 4.0 (3.5-5.1) mmol/L Chloride 104 (98-107) mmol/L Carbon Dioxide 23 (22-30) mmol/L BUN 9 (9-20) mg/dL Creatinine 0.76 (0.66-1.25) mg/dL Glucose 99 (74-99) mg/dL Calcium 9.2 (8.4-10.2) mg/dL AST 55 (17-59) U/L ALT 49 (4-49) U/L Alkaline Phosphatase 158 H (38-126) U/L Total Protein 6.7 (6.3-8.2) g/dL Albumin 3.8 (3.5-5.0) g/dL Calcium panel 01/11/21 Range/Units 18:48 Calcium 9.2 (8.4-10.2) mg/dL Albumin 3.8 (3.5-5.0) g/dL Pituitary panel 01/11/21 Range/Units 18:48 Sodium 138 (137-145) mmol/L Potassium 4.0 (3.5-5.1) mmol/L Chloride 104 (98-107) mmol/L Carbon Dioxide 23 (22-30) mmol/L BUN 9 (9-20) mg/dL Creatinine 0.76 (0.66-1.25) mg/dL Glucose 99 (74-99) mg/dL Calcium 9.2 (8.4-10.2) mg/dL Adrenal panel 01/11/21 Range/Units 18:48 Sodium 138 (137-145) mmol/L Potassium 4.0 (3.5-5.1) mmol/L Chloride 104 (98-107) mmol/L Carbon Dioxide 23 (22-30) mmol/L BUN 9 (9-20) mg/dL Creatinine 0.76 (0.66-1.25) mg/dL Glucose 99 (74-99) mg/dL Calcium 9.2 (8.4-10.2) mg/dL Total Bilirubin 1.3 (0.2-1.3) mg/dL AST 55 (17-59) U/L ALT 49 (4-49) U/L Alkaline Phosphatase 158 H (38-126) U/L Total Protein 6.7 (6.3-8.2) g/dL Albumin 3.8 (3.5-5.0) g/dL Assessment and Plan (1) History of sleeve gastrectomy Current Visit: Yes Status: Acute Code(s): Z90.3 - ACQUIRED ABSENCE OF STOMACH [PART OF] SNOMED Code(s): 300137960263119 (2) Right upper quadrant abdominal pain Current Visit: Yes Status: Acute Code(s): R10.11 - RIGHT UPPER QUADRANT PAIN SNOMED Code(s): 360871986 (3) Cholecystitis Current Visit: Yes Status: Acute Code(s): K81.9 - CHOLECYSTITIS, UNSPECIFIED SNOMED Code(s): 82737225 (4) Morbid obesity due to excess calories Current Visit: No Status: Acute Code(s): E66.01 - MORBID (SEVERE) OBESITY DUE TO EXCESS CALORIES SNOMED Code(s): 559544071 (5) Sleep apnea Current Visit: No Status: Acute Code(s): G47.30 - SLEEP APNEA, UNSPECIFIED SNOMED Code(s): 50014549
[2021-01-12] MEDS ORDERED: HEPARIN SODIUM,PORCINE/PF 5,000 UNIT/0.5 ML SYRINGE SQ PRN (07:48)
[2021-01-12] MEDS ORDERED: INDOCYANINE GREEN 25 MG VIAL IV PRN (07:49)
--- NOTE | 2021-01-12 11:01 | P.HPADDEND ---
H&P Addendum H&P Addendum Date: 01/12/21 Patient still reports moderate right upper quadrant abdominal pain. Mother is at bedside. Labs reviewed with some improvement of LFTs. Urine is very dark. IV fluid hydration for dehydration. May have ice chips. Postoperative recovery and dietary changes reviewed for robotic cholecystectomy.
[2021-01-12] MEDS ORDERED: IV FLUID CONTINUATION 1,000 ML IV ONE (18:44)
[2021-01-12] MEDS ORDERED: MELOXICAM 7.5 MG TAB PO ONE (19:00)
[2021-01-12] MEDS ORDERED: ACETAMINOPHEN TAB 500 MG TAB PO ONE (19:00)
[2021-01-12] MEDS ORDERED: ONDANSETRON 4 MG/2 ML VIAL IVP ONE (19:01)
[2021-01-12] MEDS ORDERED: DEXAMETHASONE SOD PHOSPHATE 4 MG/ML 1 ML VIAL PO ONE (19:01)
[2021-01-12] MEDS ORDERED: HYDROmorphone (PF) 1 MG/ML ONE (19:16)
[2021-01-12] MEDS ORDERED: NEOSTIGMINE 1 MG/ML 10 ML VIAL ONE (19:16)
[2021-01-12] MEDS ORDERED: ROCURONIUM 10 MG/ML (5 ML VIAL) IV ONE (19:16)
[2021-01-12] MEDS ORDERED: PROPOFOL 10 MG/ML 20 ML VIAL IV ONE (19:16)
[2021-01-12] MEDS ORDERED: LIDOCAINE 1% INJ 10MG/ML (20 ML MDV) ONE (19:16)
[2021-01-12] MEDS ORDERED: fentaNYL (PF) 50 MCG/ML 2 ML AMP ONE (19:16)
[2021-01-12] MEDS ORDERED: MIDAZOLAM 2 MG/2 ML VIAL ONE (19:16)
[2021-01-12] MEDS ORDERED: GLYCOPYRROLATE 0.2 MG/ML 2 ML VIAL ONE (19:16)
[2021-01-12] MEDS ORDERED: SUCCINYLCHOLINE CHLORIDE 100 MG/5 ML SYR IV ONE (19:16)
[2021-01-12] MEDS ORDERED: BUPIVACAINE (PF) 0.25% 30 ML VIAL SQ ONE (19:54)
[2021-01-12] MEDS ORDERED: LACTATED RINGERS 1,000 ML IV ONE (22:20)
[2021-01-12] MEDS ORDERED: ONDANSETRON 4 MG/2 ML VIAL IVP PRN (23:38)
--- NOTE | 2021-01-12 23:38 | P.OP ---
Date of Procedure: 01/12/21 Description of Procedure: SURGEON: FEDERICA DIALLO MD PREOPERATIVE DIAGNOSES: 1. Acute cholecystitis 2. Symptomatic gallstones 3. Obesity due to excess calories, BMI 33.5 4. Status post sleeve gastrectomy with intentional weight loss, over 75 pounds 5. Multiple sclerosis POSTOPERATIVE DIAGNOSES: 1. Acute purulent gangrenous cholecystitis with cystic duct obstruction due to gallstones 2. Symptomatic gallstones 3. Obesity due to excess calories, BMI 33.5 4. Status post sleeve gastrectomy with intentional weight loss, over 75 pounds 5. Multiple sclerosis 6. Peritoneal adhesions 7. Hydrops gallbladder OPERATION: 1. Robotic-assisted da Juliocesar Xi laparoscopic lysis of adhesions 2. Robotic-assisted da Juliocesar Xi laparoscopic cholecystectomy, multiport with FIREFLY 3. Placement of round #19 Pedro-Fuller drain, hepatic fossa Anesthesia: GETA, local Estimated Blood Loss (ml): 100 Pathology: other (Gallbladder fluid, necrotic gallbladder) Condition: critical Disposition: floor COMPLICATIONS: None. Operative Findings: 1. Gallbladder embedded in liver adding complexity to case 2. Subtotal cholecystectomy at infundibulum using 30 mm curved white stapler 3. Complete lack of contrast within the gallbladder and infundibulum consistent with acute cholecystitis 4. Indocyanine green was used to resect gallbladder due to completely embedded in liver 5. Peritoneal adhesions left upper quadrant and pericholecystic lysed INDICATIONS: The patient is a 35 year-old male who presents with over 3 day history of epigastric right upper quadrant pain. Clinical findings were consistent with acute cholecystitis. Surgical intervention with cholecystectomy was described. Robotic assisted laparoscopic approach was described. Benefits and risks of the procedure including but not limited to bleeding, infection, injury to the biliary tree was reviewed. Informed consent was obtained. DESCRIPTION OF PROCEDURE: Patient was brought to the operating room, placed in supine position. After general induction, the abdomen had been prepped and draped in standard sterile fashion. The robotic da Juliocesar XI system was primed. After a timeout protocol was performed, the patient had been prepped and draped in standard sterile fashion. The patient was injected with indocyanine green. A 5 mm 0 degrees laparoscopic trocar entry was performed along the left upper quadrant. Prior incisions were used from his recent sleeve gastrectomy. The abdomen insufflated to 15 mmHg pressure which was tolerated well. Diagnostic laparoscopy demonstrated no injury to bowel viscera or mesentery. The liver surface was unremarkable. A completely intrahepatic and embedded gallbladder without distinct margins was identified adding complexity to the case. Next, two 8 mm robotic ports were placed along the right upper abdomen. The camera 8-mm port was maintained along the epigastrium. Another 8 mm port was placed along the left upper abdominal wall after exchanging the 5 mm port. Please note that the ports were placed at least 10 to 15 cm away from the target anatomy of the gallbladder. Adhesions along the left upper quadrant was identified with omentum to the abdominal wall. The robot was docked along the left lateral abdomen. The patient was repositioned in reverse Trendelenburg position at 21 with the right side up 7. Using a grasper for arm 3, a grasper for arm 4, including hook cautery for arm 1, the robotic system was docked and primed as described. Instruments were interchanged by the diagnostic assistant including hook cautery, Bovie cautery and clip appliers. Additional instruments including vessel sealer, robotic suction icing maker, robotic stapler were made available. I had sat at the console. The gallbladder was encased in surrounding tissue including the proximal transverse colon, omentum adding complexity to the case and requiring extensive lysis of adhesions using blunt and sharp dissection using vessel sealer including hook artery. The gallbladder was reflected towards the dome of the liver. The gallbladder was completely embedded requiring indocyanine green to identify margins between the liver and the gallbladder adding complexity to the case. Edema was found along the cystic triangle including infundibulum. Due to edema of the cystic structures and of the infundibulum, dome down technique was performed removing the gallbladder from the hepatic fossa starting from the fundus towards the infundibulum. Using a sponge, the liver was reflected towards the diaphragm and starting at the gallbladder fundus, hook cautery was used between the liver and the gallbladder. Careful extensive dissection over was 3 hours performed to separate the gallbladder from the parenchyma as the tissue was camouflaged between the liver bed and the gallbladder wall. Clear bile emanated from the gallbladder including purulence from the gallbladder that was cleaned with a sponge. No stone spillage occurred. As the gallbladder was dissected from the hepatic fossa, hemostasis was checked using vessel sealer including hook artery as well as pressure from sponge to apply along the hepatic fossa. The entire gallbladder was without contrast consistent with acute cholecystitis. The infundibulum was retracted laterally away from the common bile duct. The left upper quadrant trocar was exchanged for a 12 mm robotic trocar. Robotic 30 mm curved white staple loads were fired across the infundibulum as the cystic duct and cystic structures were moderately edematous. Additionally, gallstone was impacted along the neck of the gallbladder. Bleeding along the liver bed was controlled with cautery. The abdomen was irrigated with normal saline solution of 750 mL. Indocyanine green was used to confirm no bile leak from the staple line. Sponges were removed from the abdomen. The robot was undocked. I re-scrubbed into the case. A 10 mm Endo Catch bag was used to remove the gallbladder in total via the left upper quadrant incision after widening the incision. The specimen was removed from the abdominal cavity. Scar Jain and 0 Vicryl was used to close the fascial defect of the left upper quadrant. A round #19 drain attached to bulb suction was placed along the right upper quadrant at the hepatic fossa and exited via the right lateral trocar. A drain stitch 2-0 nylon was placed. All pneumoperitoneum instruments were evacuated from the abdominal cavity. The incisions were cleansed using dilute hydrogen peroxide. The incisions were reapproximated using 4-0 Monocryl in an interrupted subcuticular fashion. Please note along the trocar sites, local anesthetic was placed as a field block prior to insertion of all instruments. Liquid glue was applied to the skin. Optifoam was placed along the HAYLIE site, left upper quadrant. At the end of the procedure needle, sponge, and instrument count had been verified correct by the hand frame surgical elastic knitter. The patient was transferred to postanesthesia care unit in stable condition. Intraoperative rediscuss to the patient's mother with a telephone and were pleased with level of care. COMPLEXITY: The gallbladder was encased in surrounding tissue including the proximal transverse colon, omentum adding complexity to the case and requiring extensive lysis of adhesions using blunt and sharp dissection using vessel sealer including hook artery. Dissection over 3 hours required. The gallbladder was completely embedded requiring indocyanine green to identify margins between the liver and the gallbladder adding complexity to the case.
[2021-01-12] MEDS ORDERED: SODIUM CHLORIDE 0.9% 1,000 ML IV ONE (23:40)
[2021-01-13] MEDS ORDERED: KETOROLAC 15 MG/ML 1 ML VIAL IVP ONE (00:19)
[2021-01-13] MEDS: SODIUM CHLORIDE 0.9% 1,000 ML IV SCH ×7 (00:52→20:04)
[2021-01-13] MEDS: ACETAMINOPHEN IV (For NPO) 1,000 MG in EMPTY BAG 1 BAG IVPB SCH ×3 (00:55→12:52)
[2021-01-13] MEDS: KETOROLAC 15 MG/ML 1 ML VIAL IVP SCH ×3 (06:15→18:06)
[2021-01-13] MEDS: TOPIRAMATE 25 MG TAB PO SCH ×2 (08:35→20:51)
[2021-01-13] MEDS: DOCUSATE 100 MG CAP PO SCH ×2 (08:37→20:50)
[2021-01-13] MEDS: PANTOPRAZOLE 40 MG/10 ML VIAL IV SCH (08:37)
[2021-01-13] MEDS: ENOXAPARIN 30 MG/0.3 ML SYRINGE SQ SCH (08:37)
[2021-01-13] MEDS: HYDROmorphone 0.5 MG/0.5 ML SYRINGE IVP PRN ×3 (08:37→18:04)
[2021-01-13 09:18] LABS: HCT 41.7 % (39.6-50.0); MCH 31.5 pg (27.0-32.0); MCHC 33.6 g/dL (32.0-37.0); MCV 93.7 fL (80.0-97.0); Mean Platelet Volume 11.5 fL (9.5-12.2); Platelet Count 241 X 10*3/uL (140-440); RBC 4.45 X 10*6/uL (4.40-5.60)
[2021-01-13 09:56] LABS: African American GFR (CKD) 142.7 (60.0-200.0); Albumin 3.3 g/dL (3.80-4.90); Albumin/Globulin Ratio 1.5 (1.60-3.17); Anion Gap 7.4 mmol/L (4.00-12.00); BUN/Creat Ratio 14.29 Ratio (12.00-20.00); Calcium 8.2 mg/dL (8.7-10.3); Carbon Dioxide 22.6 mmol/L (21.6-31.8); Globulin 2.2 g/dL (1.6-3.3); Non-African American GFR(CKD) 123.1 (60.0-200.0); Potassium 4.3 mmol/L (3.5-5.5); Total Bilirubin 1.6 mg/dL (0.3-1.2); Total Protein 5.5 g/dL (6.2-8.2)
[2021-01-13 10:14] LABS: Basophils # (A) 0.04 X 10*3/uL (0.00-0.10); Basophils % (A) 0.3 %; Eosinophils # (A) 0 X 10*3/uL (0.04-0.35); Eosinophils % (A) 0 %; Lymphocytes # (A) 0.67 X 10*3/uL (0.90-5.00); Lymphocytes % (A) 4.5 %; Monocytes # (A) 1.36 X 10*3/uL (0.20-1.00); Monocytes % (A) 9.2 %; Neutrophils # (A) 12.37 X 10*3/uL (1.80-7.70); Neutrophils % (A) 83.6 %
--- NOTE | 2021-01-13 12:07 | P.PN ---
Progress Note - Text Progress Note Date: 01/13/21 Patient feels slightly better. He has serosanguineous drainage from her HAYLIE drain. On exam vital signs are stable. Abdomen is soft. Incision sites clean dry tach. The 's status post laparoscopic ostectomy. Patient can receive IV antibiotic.
[2021-01-13] MEDS: ACETAMINOPHEN TAB 325 MG TAB PO PRN (15:14)
[2021-01-13 15:20] VITALS: RESP 16
[2021-01-13] MEDS: PIPERACILLIN-TAZOBACTAM 3.375 GM in SODIUM CHLORIDE 0.9% 100 ML IVPB SCH (20:50)
[2021-01-13] MEDS: metroNIDAZOLE-NS PMX 500 MG in SALINE 1 100ML.BAG IVPB SCH (20:50)
[2021-01-13] MEDS: TOPIRAMATE 50 MG PO SCH (20:53)
[2021-01-14] MEDS: SODIUM CHLORIDE 0.9% 1,000 ML IV SCH ×8 (00:29→23:52)
[2021-01-14] MEDS: KETOROLAC 15 MG/ML 1 ML VIAL IVP SCH ×4 (00:40→17:02)
[2021-01-14] MEDS: metroNIDAZOLE-NS PMX 500 MG in SALINE 1 100ML.BAG IVPB SCH ×4 (00:41→17:04)
[2021-01-14] MEDS: HYDROmorphone 0.5 MG/0.5 ML SYRINGE IVP PRN ×7 (00:50→20:37)
[2021-01-14] MEDS: PIPERACILLIN-TAZOBACTAM 3.375 GM in SODIUM CHLORIDE 0.9% 100 ML IVPB SCH ×3 (04:01→20:38)
[2021-01-14] MEDS: ACETAMINOPHEN TAB 325 MG TAB PO PRN ×2 (07:11→14:57)
[2021-01-14] MEDS: ENOXAPARIN 30 MG/0.3 ML SYRINGE SQ SCH (09:40)
[2021-01-14] MEDS: TOPIRAMATE 25 MG TAB PO SCH ×2 (09:40→20:38)
[2021-01-14] MEDS: DOCUSATE 100 MG CAP PO SCH ×2 (09:40→20:38)
[2021-01-14] MEDS: PANTOPRAZOLE 40 MG/10 ML VIAL IV SCH (09:40)
[2021-01-14 09:55] LABS: HCT 37.4 % (39.6-50.0); HGB 12.4 g/dL (13.0-17.0); MCH 31.6 pg (27.0-32.0); MCHC 33.2 g/dL (32.0-37.0); MCV 95.2 fL (80.0-97.0); Mean Platelet Volume 11.4 fL (9.5-12.2); Platelet Count 251 X 10*3/uL (140-440); RBC 3.93 X 10*6/uL (4.40-5.60); RDW 14.4 % (11.5-14.5); WBC 11.25 X 10*3/uL (4.50-10.00)
--- NOTE | 2021-01-14 10:41 | P.PN ---
Progress Note - Text Progress Note Date: 01/14/21 Patient has some complaints of some mild pain. His HAYLIE drains mainly serosanguineous. On exam vital signs are stable. Abdomen soft. Incision sites clean and intact. Laparoscopic ostectomy for acute gangrenous cholecystitis. Patient to receive supportive care.
[2021-01-14 10:49] LABS: African American GFR (CKD) 142.7 (60.0-200.0); Albumin/Globulin Ratio 1.5 (1.60-3.17); Anion Gap 4.1 mmol/L (4.00-12.00); BUN/Creat Ratio 15.71 Ratio (12.00-20.00); Calcium 7.9 mg/dL (8.7-10.3); Carbon Dioxide 22.9 mmol/L (21.6-31.8); Non-African American GFR(CKD) 123.1 (60.0-200.0); Potassium 3.9 mmol/L (3.5-5.5)
[2021-01-14 10:53] LABS: Basophils # (M) 0 X 10*3/uL (0.00-0.10); Eosinophils # (M) 0 X 10*3/uL (0.04-0.35); Lymphocytes # (M) 2.14 X 10*3/uL (0.90-5.00); Monocytes # (M) 1.35 X 10*3/uL (0.20-1.00); Neutrophils # (M) 7.76 X 10*3/uL (2.00-8.90); Neutrophils % (M) 69 %
[2021-01-14] MEDS: TOPIRAMATE 50 MG PO SCH (20:39)
[2021-01-15] MEDS: metroNIDAZOLE-NS PMX 500 MG in SALINE 1 100ML.BAG IVPB SCH ×3 (00:23→12:03)
[2021-01-15] MEDS: KETOROLAC 15 MG/ML 1 ML VIAL IVP SCH (00:23)
[2021-01-15] MEDS: PIPERACILLIN-TAZOBACTAM 3.375 GM in SODIUM CHLORIDE 0.9% 100 ML IVPB SCH (04:10)
[2021-01-15] MEDS: SODIUM CHLORIDE 0.9% 1,000 ML IV SCH ×4 (04:10→10:50)
[2021-01-15] MEDS: HYDROmorphone 0.5 MG/0.5 ML SYRINGE IVP PRN ×2 (07:22→12:10)
[2021-01-15 07:29] VITALS: BP 127/80; PULSE 64; TEMP 99.4
[2021-01-15] MEDS: TOPIRAMATE 25 MG TAB PO SCH (08:08)
[2021-01-15] MEDS: ENOXAPARIN 30 MG/0.3 ML SYRINGE SQ SCH (08:08)
[2021-01-15] MEDS: DOCUSATE 100 MG CAP PO SCH (08:08)
[2021-01-15] MEDS: PANTOPRAZOLE 40 MG/10 ML VIAL IV SCH (08:08)
[2021-01-15 09:05] LABS: Basophils % (A) 1 %; Eosinophils % (A) 0 %; HCT 41.1 % (39.0-53.0); HGB 13.1 gm/dL (13.0-17.5); Lymphocytes # (A) 0.9 k/uL (1.0-4.8); Lymphocytes % (A) 10 %; MCH 31.2 pg (25.0-35.0); MCHC 31.8 g/dL (31.0-37.0); MCV 98.2 fL (80.0-100.0); Mean Platelet Volume 8.1; Monocytes # (A) 0.5 k/uL (0-1.0); Monocytes % (A) 5 %; Neutrophils # (A) 7.2 k/uL (1.3-7.7); Neutrophils % (A) 82 %; Platelet Count 311 k/uL (150-450); RBC 4.19 m/uL (4.30-5.90); RDW 14.1 % (11.5-15.5); WBC 8.8 k/uL (3.8-10.6)
[2021-01-15 09:20] LABS: ALT 75 U/L (4-49); AST 47 U/L (17-59); African American GFR (CKD) >90 (>60 ml/min/1.73 sqM); Albumin 2.6 g/dL (3.5-5.0); Alkaline Phosphatase 203 U/L (38-126); Anion Gap 7 mmol/L; Blood Urea Nitrogen 9 mg/dL (9-20); Calcium 8.2 mg/dL (8.4-10.2); Carbon Dioxide 24 mmol/L (22-30); Chloride 107 mmol/L (98-107); Globulin 2.6 g/dL; Glucose 110 mg/dL (74-99); Lipase 126 U/L (23-300); Non-African American GFR(CKD) >90 (>60 ml/min/1.73 sqM); Potassium 3.7 mmol/L (3.5-5.1); Sodium 138 mmol/L (137-145); Total Bilirubin 1.3 mg/dL (0.2-1.3); Total Protein 5.2 g/dL (6.3-8.2)
[2021-01-15] MEDS ORDERED: LEVOFLOXACIN 500MG-D5W PMX 500 MG in DEXTROSE/WATER 1 100ML.BAG IVPB SCH (11:00)
--- NOTE | 2021-01-15 12:31 | P.DS ---
Providers Date of admission: 01/12/21 23:38 Expected date of discharge: 01/15/21 Attending physician: Rochelle Hernandez Primary care physician: Jerome Mack Hospital Course: Discharge diagnosis 1. Acute purulent gangrenous cholecystitis with cystic duct obstruction due to gallstones 2. Symptomatic gallstones 3. Obesity due to excess calories, BMI 33.5 4. Status post sleeve gastrectomy with intentional weight loss, over 75 pounds 5. Multiple sclerosis 6. Peritoneal adhesions 7. Hydrops gallbladder Hospital course The patient is a 35 year-old male who presents with over 3 day history of epigastric right upper quadrant pain. Clinical findings were consistent with acute cholecystitis. Patient is status post Robotic-assisted da Juliocesar Xi laparoscopic lysis of adhesions, Robotic-assisted da Juliocesar Xi laparoscopic cholecystectomy and placement of round #19 Pedro-Fuller drain, hepatic fossa. Patient tolerated surgery well. His pain is controlled. He is tolerating diet. His having flatus. He is up and ambulating. He is afebrile. His culture result from surgery did grow Salmonella. He'll be discharged with antibiotics. He is stable for discharge. Physician Windows Migration Technician note has been reviewed by physician. Signing provider agrees with the documented findings, assessment, and plan of care. Patient Condition at Discharge: Stable Plan - Discharge Summary Discharge Rx Participant: Yes New Discharge Prescriptions: New Ibuprofen [Motrin] 600 mg PO Q8HR PRN #30 tab PRN Reason: Pain Omeprazole [PriLOSEC] 40 mg PO DAILY #14 cap metroNIDAZOLE [Flagyl] 500 mg PO Q8HR #30 tab Simethicone 40 mg/0.6 ml Drops [Mylicon Drops] 80 mg PO Q6HR PRN #30 ml PRN Reason: Abdominal Distention Acetaminophen Tab [Tylenol Tab] 1,000 mg PO Q6HR PRN #30 tablet PRN Reason: Pain Ciprofloxacin HCl [Cipro] 500 mg PO Q12H 1 Days #20 tab Continue Topiramate [Topamax] 25 mg PO BID Topiramate [Trokendi Xr] 50 mg PO HS Discontinued Simethicone [Gas-X] 125 mg PO Q4-6H PRN PRN Reason: Gi Upset Acetaminophen Tab [Tylenol Tab] 500 mg PO Q8H PRN PRN Reason: Pain Discharge Medication List Topiramate [Topamax] 25 mg PO BID 10/27/20 [History] Topiramate [Trokendi Xr] 50 mg PO HS 01/11/21 [History] Acetaminophen Tab [Tylenol Tab] 1,000 mg PO Q6HR PRN #30 tablet 01/12/21 [Rx] Ibuprofen [Motrin] 600 mg PO Q8HR PRN #30 tab 01/12/21 [Rx] Omeprazole [PriLOSEC] 40 mg PO DAILY #14 cap 01/12/21 [Rx] Simethicone 40 mg/0.6 ml Drops [Mylicon Drops] 80 mg PO Q6HR PRN #30 ml 01/12/21 [Rx] Ciprofloxacin HCl [Cipro] 500 mg PO Q12H 1 Days #20 tab 01/15/21 [Rx] metroNIDAZOLE [Flagyl] 500 mg PO Q8HR #30 tab 01/15/21 [Rx] Follow up Appointment(s)/Referral(s): Frederick Cano MD [Primary Care Provider] - 1-2 days [facility] [place], [place] [NON-STAFF] - 01/17/21 (Please call Friday to confirm time) Patient Instructions/Handouts: Low Fat Diet (DC), Pedro-Fuller Drain Care (DC), Laparoscopic Cholecystectomy (DC) Activity/Diet/Wound Care/Special Instructions: Recommend low-fat diet for the next 2 days. No lifting over 10 pounds in 2 weeks until Jan 26. October shower. No bath tub soaks for two weeks until Jan 26. . Diet as tolerated. Use Tylenol, simethicone and ibuprofen or Aleve scheduled for the next 24-48 hours for best pain relief. Use ice along incisions for today to prevent swelling. Keep a log of HAYLIE drain output and bring with you to your follow-up appointment Milk/strip drains 2-3 times a day Discharge Disposition: HOME SELF-CARE
== END 2021-01-15 13:45 | disposition home or self-care (01) | DRG 418 ==
LOC: EC 17:12 → 6NMEDSUR 21:39 → OBSVTOIN 01-12 23:38
PROVIDERS: ADMIT Surgery Plastic and Reconstructive Surgery; ATTEND Surgery Plastic and Reconstructive Surgery
PROC: 0FN44ZZ Release Gallbladder, Percutaneous Endoscopic Approach (ICD-10-PCS; principal; 2021-01-12 07:30)
PROC: 0FN04ZZ Release Liver, Percutaneous Endoscopic Approach (ICD-10-PCS; principal; 2021-01-12 07:30)
PROC: 8E0W4CZ Robotic Assisted Procedure of Trunk Region, Percutaneous Endoscopic Approach (ICD-10-PCS; principal; 2021-01-12 07:30)
PROC: 0DNU4ZZ Release Omentum, Percutaneous Endoscopic Approach (ICD-10-PCS; principal; 2021-01-12 07:30)
PROC: 0DNL4ZZ Release Transverse Colon, Percutaneous Endoscopic Approach (ICD-10-PCS; principal; 2021-01-12 07:30)
PROC: 0FT44ZZ Resection of Gallbladder, Percutaneous Endoscopic Approach (ICD-10-PCS; principal; 2021-01-12 07:30)
DX: K80.01 Calculus of gallbladder with acute cholecystitis with obstruction (principal); K82.1 Hydrops of gallbladder; A02.9 Salmonella infection, unspecified; K82.A1 Gangrene of gallbladder in cholecystitis; G35 Multiple sclerosis; E66.01 Morbid (severe) obesity due to excess calories; Z68.33 Body mass index [BMI] 33.0-33.9, adult; K66.0 Peritoneal adhesions (postprocedural) (postinfection); G47.30 Sleep apnea, unspecified; G43.909 Migraine, unspecified, not intractable, without status migrainosus; M47.9 Spondylosis, unspecified; Z79.899 Other long term (current) drug therapy; Z87.891 Personal history of nicotine dependence; Z86.59 Personal history of other mental and behavioral disorders; Z98.84 Bariatric surgery status; Z80.8 Family history of malignant neoplasm of other organs or systems
CPT/HCPCS: 36415; 74177; 76705; 80053; 81001; 82150; 83605; 83690; 85025; 87040; 87070; 87075; 87077; 87186; 87205; 88304; 96361; 96365; 96375; 99285

== ENCOUNTER → 2021-01-24 | Outpatient (CLI) | payer OTHER ==
[2021-01-24 14:40] VITALS: BMI 32.2
[2021-01-24 14:42] VITALS: BP 107/74; PULSE 76; RESP 18; TEMP 98.1
--- NOTE | 2021-01-24 15:05 | P.PN ---
Subjective Progress Note Date: 01/24/21 His abdominal pain is resolved. He still has HAYLIE drain. No bile. Plan for removal. Less than 20 mL daily serosanguinous. Minimal bile. Blood work. Objective - Vital Signs Vital signs: Vital Signs Temp 98.1 F 01/24/21 14:35 Pulse 76 01/24/21 14:35 Resp 18 01/24/21 14:35 BP 107/74 01/24/21 14:35 Pulse Ox Intake & Output 01/23/21 01/24/21 01/24/21 18:59 06:59 18:59 Weight 110.858 kg
[2021-01-24 17:20] LABS: HCT 47.8 % (39.0-53.0); HGB 15.7 gm/dL (13.0-17.5); MCH 32.5 pg (25.0-35.0); MCHC 32.9 g/dL (31.0-37.0); MCV 98.9 fL (80.0-100.0); Mean Platelet Volume 8.1; Platelet Count 644 k/uL (150-450); RBC 4.83 m/uL (4.30-5.90); RDW 13.8 % (11.5-15.5); WBC 6.5 k/uL (3.8-10.6)
[2021-01-25 06:10] LABS: African American GFR (CKD) 135.1 (60.0-200.0); Albumin 4.3 g/dL (3.80-4.90); Albumin/Globulin Ratio 1.43 (1.60-3.17); Anion Gap 11.4 mmol/L (4.00-12.00); BUN/Creat Ratio 13.75 Ratio (12.00-20.00); Calcium 9.6 mg/dL (8.7-10.3); Carbon Dioxide 24.6 mmol/L (21.6-31.8); Non-African American GFR(CKD) 116.6 (60.0-200.0); Potassium 5.2 mmol/L (3.5-5.5); Total Bilirubin 0.7 mg/dL (0.2-1.2); Total Protein 7.3 g/dL (6.2-8.2)
== END | disposition home or self-care (01) ==
LOC: BARWHC3 14:01
PROVIDERS: ATTEND Surgery Plastic and Reconstructive Surgery
DX: E66.01 Morbid (severe) obesity due to excess calories (principal); Z71.3 Dietary counseling and surveillance
CPT/HCPCS: 80053; 85027; 97803; G0463; 99211

== ENCOUNTER → 2021-02-19 | Outpatient (CLI) | payer OTHER ==
[2021-02-19 14:53] LABS: HCT 43.5 % (39.6-50.0); HGB 14.4 g/dL (13.0-17.0); MCH 30.9 pg (27.0-32.0); MCHC 33.1 g/dL (32.0-37.0); MCV 93.3 fL (80.0-97.0); Platelet Count 217 X 10*3/uL (140-440); RBC 4.66 X 10*6/uL (4.40-5.60); RDW 13.9 % (11.5-14.5); WBC 3.09 X 10*3/uL (4.50-10.00)
[2021-02-19 15:50] LABS: Hemoglobin A1C 4.7 % (4.0-6.0)
[2021-02-19 15:55] LABS: African American GFR (CKD) 134.1 (60.0-200.0); Albumin 4.5 g/dL (3.80-4.90); Albumin/Globulin Ratio 2.05 (1.60-3.17); Anion Gap 6.3 mmol/L (4.00-12.00); BUN/Creat Ratio 13.75 Ratio (12.00-20.00); Carbon Dioxide 28.7 mmol/L (21.6-31.8); Globulin 2.2 g/dL (1.6-3.3); Non-African American GFR(CKD) 115.7 (60.0-200.0); Potassium 3.8 mmol/L (3.5-5.5); Total Bilirubin 1.3 mg/dL (0.3-1.2); Total Protein 6.7 g/dL (6.2-8.2)
[2021-02-19 17:29] LABS: Basophils # (A) 0.07 X 10*3/uL (0.00-0.10); Basophils % (A) 2.3 %; Eosinophils % (A) 3.2 %; Lymphocytes # (A) 1.54 X 10*3/uL (0.90-5.00); Lymphocytes % (A) 49.8 %; Monocytes # (A) 0.65 X 10*3/uL (0.20-1.00); Neutrophils # (A) 0.73 X 10*3/uL (1.80-7.70); Neutrophils % (A) 23.7 %
[2021-02-19 17:31] LABS: HIV 2 AB Non-Reactive (Non-Reactive); HIV AB P24 Non-Reactive (Non-Reactive); HIV P24 AG Non-Reactive (Non-Reactive)
[2021-02-19 19:34] LABS: Hepatitis B Core IgM Non-Reactive (Non-Reactive); Hepatitis B Surface AB- Quant 235.8 mIU/mL; Hepatitis B Surface Antibody Reactive (Non-Reactive); Hepatitis B Surface Antigen Non-Reactive (Non-Reactive)
[2021-02-20 01:41] LABS: Folate, Serum 12.3 ng/mL
[2021-02-21 05:01] LABS: Varicella IgM Antibody 0.27 INDEX (<=0.90)
== END | disposition home or self-care (01) ==
LOC: LABWHC1 08:40
PROVIDERS: ATTEND Psychiatry & Neurology Pain Medicine
DX: G35 Multiple sclerosis (principal)
CPT/HCPCS: 36415; 80053; 82306; 82607; 82746; 83036; 84207; 84425; 84439; 84443; 84481; 84591; 85025; 86704; 86705; 86706; 86787; 87340; 87390

== ENCOUNTER → 2021-05-30 | Outpatient (CLI) | payer OTHER ==
[2021-05-30 14:35] VITALS: BP 113/76; PULSE 50; RESP 18; TEMP 98.2; BMI 30.4
--- NOTE | 2021-05-30 14:44 | P.BASOAP ---
Subjective Progress Note Date: 05/30/21 He lost 100 pounds. He reports left sided pain. His pain was worse in the past. Pain is worse with stretching. Recommend blood work. May need lysis of adhesions. Objective - Vital Signs Vital signs: Vital Signs Temp 98.2 F 05/30/21 14:25 Pulse 50 L 05/30/21 14:25 Resp 18 05/30/21 14:25 BP 113/76 05/30/21 14:25 Pulse Ox Intake & Output 05/29/21 05/30/21 05/30/21 18:59 06:59 18:59 Weight 104.78 kg Assessment/Plan Plan: Date: 05/30/21 Initial Weight: 149.232 kg Initial BMI: 43.4 Current Weight: 104.78 kg Current BMI: 30.4 Type of Surgery: Total Volume in Band: Previous Volume: Volume Removed: Volume Added: Band Size:
[2021-05-30 15:38] LABS: HCT 47.6 % (39.0-53.0); HGB 15.3 gm/dL (13.0-17.5); MCH 31.7 pg (25.0-35.0); MCHC 32.1 g/dL (31.0-37.0); MCV 98.7 fL (80.0-100.0); Mean Platelet Volume 8.4; Platelet Count 230 k/uL (150-450); RBC 4.82 m/uL (4.30-5.90); RDW 13.5 % (11.5-15.5); WBC 4.3 k/uL (3.8-10.6)
[2021-05-30 16:03] LABS: INR 1.1 (<1.2); Partial Thromboplastin Time 25.1 sec (22.0-30.0); Prothrombin Time 11.3 sec (9.0-12.0)
[2021-05-31 05:02] LABS: ALT 19 U/L (10-49); AST 17 U/L (14-35); African American GFR (CKD) 135.5 (60.0-200.0); Albumin 4.7 g/dL (3.8-4.9); Albumin/Globulin Ratio 1.94 (1.60-3.17); Alkaline Phosphatase 99 U/L (41-126); BUN/Creat Ratio 13.57 Ratio (12.00-20.00); Blood Urea Nitrogen 10.6 mg/dL (9.0-27.0); Calcium 9.5 mg/dL (8.7-10.3); Carbon Dioxide 28.2 mmol/L (20.0-27.5); Chloride 103 mmol/L (96-109); Chol/HDL Ratio 3.12 Ratio; Globulin 2.4 g/dL (1.6-3.3); Glucose 88 mg/dL (70-110); Iron 73 ug/dL (65-175); LDL Cholesterol,Calculated 101.5 mg/dL (0.0-131.0); Magnesium 2.1 mg/dL (1.5-2.4); Non-African American GFR(CKD) 116.9 (60.0-200.0); Phosphorus 3.9 mg/dL (2.4-5.1); Potassium 4.3 mmol/L (3.5-5.5); Prealbumin 21.3 mg/dL (18.0-42.0); Sodium 142 mmol/L (135-145); Total Iron Binding Capacity 361 ug/dL (228-460); Total Protein 7.1 g/dL (6.2-8.2); VLDL Calculation 12.64 mg/dL (5.00-40.00)
[2021-05-31 13:24] LABS: Zinc, Serum 66 ug/dL (60-130)
[2021-06-01 07:39] LABS: Vit B1(Thiamine) 96 ug/L (38-122)
== END | disposition home or self-care (01) ==
LOC: BARWHC3 14:15
PROVIDERS: ATTEND Surgery Plastic and Reconstructive Surgery
DX: E89.1 Postprocedural hypoinsulinemia (principal); D50.8 Other iron deficiency anemias; E44.0 Moderate protein-calorie malnutrition; E55.9 Vitamin D deficiency, unspecified; K74.1 Hepatic sclerosis; N19 Unspecified kidney failure; K50.90 Crohn's disease, unspecified, without complications
CPT/HCPCS: 84255; 84134; 84425; 80061; 80053; 82607; 82728; 82525; 82746; 83540; 83550; 83735; 84100; 84443; 84590; 84630; 85027; 85610; 85730; 82306; 83970; 83036; 36415; G0463; 99211

== ENCOUNTER → 2021-08-29 | Outpatient (CLI) | payer OTHER ==
[2021-08-29 15:19] VITALS: BP 110/72; PULSE 77; RESP 16; TEMP 97.4; BMI 28.3
--- NOTE | 2021-08-29 15:32 | P.BASOAP ---
Subjective Progress Note Date: 08/29/21 He is no longer obese. Patient look in to lose weight to 210 pounds. Mother is at bedside. Since as a multiple sclerosis has improved. Patient was to 1 year now. Recommend blood work. Objective - Vital Signs Vital signs: Vital Signs Temp 97.4 F L 08/29/21 15:11 Pulse 77 08/29/21 15:11 Resp 16 08/29/21 15:11 BP 110/72 08/29/21 15:11 Pulse Ox Intake & Output 08/28/21 08/29/21 08/29/21 18:59 06:59 18:59 Weight 97.522 kg Assessment/Plan Plan: Date: 08/29/21 Initial Weight: 149.232 kg Initial BMI: 43.4 Current Weight: 97.522 kg Current BMI: 28.3 Type of Surgery: Total Volume in Band: Previous Volume: Volume Removed: Volume Added: Band Size:
[2021-08-29 16:36] LABS: INR 1.1 (<1.2); Partial Thromboplastin Time 25.1 sec (22.0-30.0); Prothrombin Time 11.9 sec (9.0-12.0)
[2021-08-29 23:46] LABS: HCT 48.4 % (39.6-50.0); HGB 16.2 g/dL (13.0-17.0); MCH 31.7 pg (27.0-32.0); MCHC 33.5 g/dL (32.0-37.0); MCV 94.7 fL (80.0-97.0); Mean Platelet Volume 11.7 fL (9.5-12.2); NRBC Per 100 WBC 0 /100 WBCS (0.0-0.0); Platelet Count 234 X 10*3/uL (140-440); RBC 5.11 X 10*6/uL (4.40-5.60); RDW 12.9 % (11.5-14.5); WBC 4.66 X 10*3/uL (4.50-10.00)
[2021-08-30 01:13] LABS: % Iron Saturation 26.39 (15.00-50.00); ALT 24 U/L (10-49); AST 29 U/L (14-35); African American GFR (CKD) 111.2 (60.0-200.0); Albumin 4.7 g/dL (3.8-4.9); Albumin/Globulin Ratio 1.72 (1.60-3.17); Alkaline Phosphatase 86 U/L (41-126); BUN/Creat Ratio 17.23 Ratio (12.00-20.00); Blood Urea Nitrogen 17.4 mg/dL (9.0-27.0); Calcium 9.7 mg/dL (8.7-10.3); Carbon Dioxide 20.5 mmol/L (20.0-27.5); Chloride 108 mmol/L (96-109); Globulin 2.7 g/dL (1.6-3.3); Glucose 108 mg/dL (70-110); Iron 94 ug/dL (65-175); Magnesium 2.3 mg/dL (1.5-2.4); Non-African American GFR(CKD) 95.9 (60.0-200.0); Potassium 3.8 mmol/L (3.5-5.5); Sodium 142 mmol/L (135-145); Total Iron Binding Capacity 357 ug/dL (228-460); Total Protein 7.4 g/dL (6.2-8.2)
[2021-08-30 03:48] LABS: Chol/HDL Ratio 2.85 Ratio; LDL Cholesterol,Calculated 79.6 mg/dL (0.0-131.0); VLDL Calculation 16.44 mg/dL (5.00-40.00)
[2021-08-30 04:19] LABS: Prealbumin 23.1 mg/dL (18.0-42.0)
[2021-08-30 13:44] LABS: Zinc, Serum 61 ug/dL (60-130)
[2021-08-31 06:45] LABS: Vitamin A 53 ug/dL (38-106)
[2021-09-01 00:33] LABS: Selenium 130 mcg/L (63-160)
== END | disposition home or self-care (01) ==
LOC: BARWHC3 14:04
PROVIDERS: ATTEND Surgery Plastic and Reconstructive Surgery
DX: D50.8 Other iron deficiency anemias (principal); E66.01 Morbid (severe) obesity due to excess calories; E89.1 Postprocedural hypoinsulinemia; E44.0 Moderate protein-calorie malnutrition; E44.1 Mild protein-calorie malnutrition; E45 Retarded development following protein-calorie malnutrition; E55.9 Vitamin D deficiency, unspecified; K74.1 Hepatic sclerosis; N19 Unspecified kidney failure; T56.894A Toxic effect of other metals, undetermined, initial encounter; K50.90 Crohn's disease, unspecified, without complications
CPT/HCPCS: 84255; 84134; 84425; 80061; 80053; 82607; 82728; 82525; 83540; 83550; 83735; 84100; 84443; 84590; 84630; 85027; 85610; 85730; 82306; 83970; 83036; G0463; 82746; 99211

== ENCOUNTER → 2021-11-16 | Outpatient (CLI) | payer OTHER ==
[2021-11-16 11:33] LABS: Partial Thromboplastin Time 25.7 sec (22.0-30.0); Prothrombin Time 11.1 sec (9.0-12.0)
[2021-11-16 19:07] LABS: HCT 46.6 % (39.6-50.0); HGB 15.3 g/dL (13.0-17.0); MCH 32.1 pg (27.0-32.0); MCHC 32.8 g/dL (32.0-37.0); MCV 97.9 fL (80.0-97.0); Mean Platelet Volume 11.5 fL (9.5-12.2); NRBC Per 100 WBC 0 /100 WBCS (0.0-0.0); Platelet Count 219 X 10*3/uL (140-440); RBC 4.76 X 10*6/uL (4.40-5.60); WBC 3.87 X 10*3/uL (4.50-10.00)
[2021-11-16 20:33] LABS: % Iron Saturation 32.57 (15.00-50.00); ALT 19 U/L (10-49); AST 19 U/L (14-35); African American GFR (CKD) 134.1 (60.0-200.0); Albumin 4.6 g/dL (3.8-4.9); Albumin/Globulin Ratio 2.09 (1.60-3.17); Alkaline Phosphatase 86 U/L (41-126); Blood Urea Nitrogen 13.2 mg/dL (9.0-27.0); Calcium 9.2 mg/dL (8.7-10.3); Chloride 104 mmol/L (96-109); Globulin 2.2 g/dL (1.6-3.3); Glucose 71 mg/dL (70-110); Iron 114 ug/dL (65-175); Magnesium 2.5 mg/dL (1.5-2.4); Non-African American GFR(CKD) 115.7 (60.0-200.0); Phosphorus 2.7 mg/dL (2.4-5.1); Potassium 4.8 mmol/L (3.5-5.5); Sodium 139 mmol/L (135-145); Total Iron Binding Capacity 350 ug/dL (228-460); Total Protein 6.8 g/dL (6.2-8.2)
[2021-11-17 00:54] LABS: Chol/HDL Ratio 3.01 Ratio; LDL Cholesterol,Calculated 91.8 mg/dL (0.0-131.0); Prealbumin 22.7 mg/dL (18.0-42.0); VLDL Calculation 17.12 mg/dL (5.00-40.00)
== END | disposition home or self-care (01) ==
LOC: LABWHC1 09:30
PROVIDERS: ATTEND Surgery Plastic and Reconstructive Surgery
DX: E66.01 Morbid (severe) obesity due to excess calories (principal); D50.8 Other iron deficiency anemias; D50.9 Iron deficiency anemia, unspecified; K91.2 Postsurgical malabsorption, not elsewhere classified; E44.0 Moderate protein-calorie malnutrition; E44.1 Mild protein-calorie malnutrition; E45 Retarded development following protein-calorie malnutrition; E46 Unspecified protein-calorie malnutrition; N19 Unspecified kidney failure
CPT/HCPCS: 36415; 80053; 80061; 82306; 82525; 82607; 82728; 82746; 83036; 83540; 83550; 83735; 83970; 84100; 84134; 84255; 84425; 84443; 84590; 84630; 85027; 85610; 85730

== ENCOUNTER → 2022-11-06 | Outpatient (CLI) | payer OTHER ==
--- NOTE | 2022-11-06 16:59 | P.BASOAP ---
Subjective Progress Note Date: 11/06/22 He is coming in with 20 pounds weight gain. He was as low as 210 pounds and was told he looked sickly. No abdominal pain. He is not overeating. He is packaging his meals. No heartburn. Very minimal skin. Recommend ab exercise. Assessment/Plan Plan: Date: 11/06/22 Initial Weight: 149.232 kg Initial BMI: Current Weight: Current BMI: Type of Surgery: Collette-en-Y Gastric Bypass Total Volume in Band: Previous Volume: Volume Removed: Volume Added: Band Size:
[2022-11-06 17:12] VITALS: BP 121/68; PULSE 58; TEMP 98; BMI 30.9
== END ==
LOC: BARWHC3 15:45
PROVIDERS: ATTEND Surgery Plastic and Reconstructive Surgery
DX: E66.01 Morbid (severe) obesity due to excess calories (principal); Z68.31 Body mass index [BMI] 31.0-31.9, adult
CPT/HCPCS: 99211

== ENCOUNTER → 2022-11-08 | Outpatient (CLI) | payer OTHER ==
[2022-11-08 15:01] LABS: Partial Thromboplastin Time 24.7 sec (22.0-30.0); Prothrombin Time 10.4 sec (9.0-12.0)
[2022-11-09 02:11] LABS: HCT 47.9 % (39.6-50.0); HGB 15.4 g/dL (13.0-17.0); MCHC 32.2 g/dL (32.0-37.0); MCV 99.4 fL (80.0-97.0); Mean Platelet Volume 11.9 fL (9.5-12.2); NRBC Per 100 WBC 0 /100 WBCS (0.0-0.0); Platelet Count 255 X 10*3/uL (140-440); RBC 4.82 X 10*6/uL (4.40-5.60); RDW 13.2 % (11.5-14.5); WBC 6.24 X 10*3/uL (4.50-10.00)
[2022-11-09 02:26] LABS: % Iron Saturation 22.26 (15.00-50.00); Total Iron Binding Capacity 372 ug/dL (228-460)
[2022-11-09 02:35] LABS: ALT 23 U/L (10-49); AST 24 U/L (14-35); Albumin 4.6 g/dL (3.8-4.9); Albumin/Globulin Ratio 1.99 (1.60-3.17); Alkaline Phosphatase 83 U/L (41-126); BUN/Creat Ratio 17.44 Ratio (12.00-20.00); Blood Urea Nitrogen 13.5 mg/dL (9.0-27.0); Calcium 9.4 mg/dL (8.7-10.3); Carbon Dioxide 23.4 mmol/L (20.0-27.5); Chloride 103 mmol/L (96-109); Globulin 2.3 g/dL (1.6-3.3); Glucose 87 mg/dL (70-110); Iron 83 ug/dL (65-175); Magnesium 2.3 mg/dL (1.5-2.4); Non-African American GFR(CKD) 116.5 (60.0-200.0); Phosphorus 2.8 mg/dL (2.4-5.1); Potassium 4.9 mmol/L (3.5-5.5); Sodium 139 mmol/L (135-145); Total Protein 6.9 g/dL (6.2-8.2)
[2022-11-09 02:36] LABS: Chol/HDL Ratio 2.93 Ratio; LDL Cholesterol,Calculated 96.4 mg/dL (0.0-131.0); Prealbumin 23.2 mg/dL (18.0-42.0)
== END | disposition home or self-care (01) ==
LOC: LABWHC1 13:37
PROVIDERS: ATTEND Surgery Plastic and Reconstructive Surgery
DX: E66.01 Morbid (severe) obesity due to excess calories (principal); D50.8 Other iron deficiency anemias; K91.2 Postsurgical malabsorption, not elsewhere classified; E44.0 Moderate protein-calorie malnutrition; E44.1 Mild protein-calorie malnutrition; E45 Retarded development following protein-calorie malnutrition; E46 Unspecified protein-calorie malnutrition; E55.9 Vitamin D deficiency, unspecified; K74.1 Hepatic sclerosis; N19 Unspecified kidney failure; T56.894A Toxic effect of other metals, undetermined, initial encounter; K50.90 Crohn's disease, unspecified, without complications; E89.1 Postprocedural hypoinsulinemia
CPT/HCPCS: 36415; 80053; 80061; 82306; 82525; 82607; 82728; 82746; 83036; 83540; 83550; 83735; 83970; 84100; 84134; 84255; 84425; 84443; 84590; 84630; 85027; 85610; 85730

== ENCOUNTER → 2023-08-16 | Outpatient (CLI) | payer MEDICARE, OTHER ==
[2023-08-16 11:35] LABS: Partial Thromboplastin Time 25.8 sec (22.0-30.0)
[2023-08-16 21:56] LABS: HCT 48.9 % (39.6-50.0); HGB 16.1 g/dL (13.0-17.0); MCH 31.4 pg (27.0-32.0); MCHC 32.9 g/dL (32.0-37.0); MCV 95.3 FL (80.0-97.0); Mean Platelet Volume 10.9 FL (9.5-12.2); NRBC Per 100 WBC 0 X 10*3/uL (0.00-0.01); Platelet Count 248 X 10*3/uL (140-440); RBC 5.13 X 10*6/uL (4.40-5.60); RDW 13.1 % (11.5-14.5); WBC 5.33 X 10*3/uL (4.50-10.00)
[2023-08-16 22:25] LABS: Chol/HDL Ratio 3.34 Ratio; Magnesium 2.2 mg/dL (1.5-2.4)
[2023-08-16 22:26] LABS: % Iron Saturation 38.73 (15.00-50.00); ALT 24 U/L (10-49); AST 22 U/L (14-35); Albumin 4.7 g/dL (3.8-4.9); Albumin/Globulin Ratio 1.74 Ratio (1.60-3.17); Alkaline Phosphatase 81 U/L (41-126); Blood Urea Nitrogen 13.4 mg/dL (9.0-27.0); Calcium 9.5 mg/dL (8.7-10.3); Carbon Dioxide 27.2 mmol/L (21.6-31.8); Chloride 101 mmol/L (96-109); Globulin 2.7 g/dL (1.6-3.3); Glucose 83 mg/dL (70-110); Iron 146 UG/DL (65-175); LDL Cholesterol,Calculated 120.4 mg/dL (0.0-131.0); Phosphorus 3.1 mg/dL (2.4-5.1); Potassium 4.6 mmol/L (3.5-5.5); Sodium 139 mmol/L (135-145); Total Bilirubin 1.3 mg/dL (0.3-1.2); Total Iron Binding Capacity 377 UG/DL (228-460); Total Protein 7.4 g/dL (6.2-8.2); VLDL Calculation 17.74 mg/dL (5.00-40.00)
[2023-08-16 22:27] LABS: Prealbumin 25.5 mg/dL (18.0-42.0)
== END | disposition home or self-care (01) ==
LOC: LABWHC1 09:22
PROVIDERS: ATTEND Surgery Plastic and Reconstructive Surgery
DX: E66.01 Morbid (severe) obesity due to excess calories (principal); E89.1 Postprocedural hypoinsulinemia; D50.8 Other iron deficiency anemias; K91.2 Postsurgical malabsorption, not elsewhere classified; E44.0 Moderate protein-calorie malnutrition; E44.1 Mild protein-calorie malnutrition; E45 Retarded development following protein-calorie malnutrition; E46 Unspecified protein-calorie malnutrition; E55.9 Vitamin D deficiency, unspecified; K74.1 Hepatic sclerosis; N19 Unspecified kidney failure; T56.894A Toxic effect of other metals, undetermined, initial encounter; K50.90 Crohn's disease, unspecified, without complications
CPT/HCPCS: 36415; 80053; 80061; 82306; 82525; 82607; 82728; 82746; 83036; 83540; 83550; 83735; 83970; 84100; 84134; 84255; 84425; 84443; 84590; 84630; 85027; 85610; 85730

== ENCOUNTER → 2023-09-10 | Outpatient (CLI) | payer MEDICARE, OTHER ==
--- NOTE | 2023-09-10 16:20 | P.BASOAP ---
Subjective Progress Note Date: 09/10/23 Weight is lost 1 pound. Diary journal reviewed. Fiber 35 to 55 grams. Exercise is frequently. He has a brother. Assessment/Plan Plan: Date: Initial Weight: 149.232 kg Initial BMI: Current Weight: Current BMI: Type of Surgery: Total Volume in Band: Previous Volume: Volume Removed: Volume Added: Band Size:
[2023-09-10 16:53] VITALS: BP 113/73; PULSE 55; RESP 16; TEMP 97.7; BMI 33.9
== END ==
LOC: BARWHC3 14:47
PROVIDERS: ATTEND Surgery Plastic and Reconstructive Surgery
DX: E66.01 Morbid (severe) obesity due to excess calories (principal); Z53.9 Procedure and treatment not carried out, unspecified reason
CPT/HCPCS: 99211